=== PATIENT | female | born 1990 | race American Indian/Alaskan Native ===

== ENCOUNTER 2018-04-15 23:02 | Emergency (ER) | payer MEDICAID ==
--- NOTE | 2018-04-15 23:57 | Emergency Department Report ---
ED Abdominal Pain HPI - General Chief Complaint: Abdominal Pain Stated Complaint: ABD PAIN/8WKS Source: patient Mode of arrival: Ambulatory Limitations: No Limitations - History of Present Illness Initial Comments: Patient is a 27-year-old female that presents emergency room with complaints of lower abdominal pain/pelvic pain and dysuria. Patient states she's been having this pain for approximately 4 days. Patient states the dysuria is worsening but the pelvic pain is same. Patient states the pelvic pain is a 10 out of 10. Patient states the pain is not radiating. Patient states the pain is a stabbing pain and is uncomfortable. Patient denies fever and chills. Patient denies nausea vomiting. Patient denies diarrhea. Patient denies any recent sexual act ivity since finding out she is . Patient is currently 8 weeks . Patient denies vaginal discharge. Patient has not had any care. Patient is a . Patient denies previous miscarriages or abortions. Patient has one living child. MD Complaint: abdominal pain -: Sudden Location: suprapubic Radiation: none Migration to: no migration Severity: severe Severity scale (0 -10): 10 Quality: cramping Consistency: constant Improves With: rest Worsens With: movement Associated Symptoms: dysuria. denies: nausea, vomiting, diarrhea, fever, chills, constipation, hematemesis, hematochezia, melena, hematuria, anorexia, syncope - Related Data LMP (females 10-50): Previous Rx's Medication Instructions Recorded Last Taken Type Amoxicillin [Amoxicillin TAB] 875 mg PO BID 10 Days #20 tablet 04/16/18 Unknown Rx Allergies Allergy/AdvReac Type Severity Reaction Status Date / Time No Known Allergies Allergy Unverified 04/15/18 23:12 ED Review of Systems ROS: Stated complaint: ABD PAIN/8WKS Other details as noted in HPI Constitutional: denies: chills, fever Eyes: denies: eye pain, eye discharge, vision change ENT: denies: ear pain, throat pain Respiratory: denies: cough, shortness of breath, wheezing Cardiovascular: denies: chest pain, palpitations Endocrine: no symptoms reported Gastrointestinal: abdominal pain. denies: nausea, diarrhea Genitourinary: dysuria. denies: urgency, discharge Musculoskeletal: denies: back pain, joint swelling, arthralgia Skin: denies: rash, lesions Neurological: denies: headache, weakness, paresthesias Psychiatric: denies: anxiety, depression Hematological/Lymphatic: denies: easy bleeding, easy bruising ED Past Medical Hx - Past Medical History Previous Medical History?: Yes Hx Hypertension: Yes (Preeclampsia) - Surgical History Past Surgical History?: Yes Additional Surgical History: C section - Family History Family history: no significant - Social History Smoking Status: Never Smoker Substance Use Type: None - Medications Home Medications: Home Medications Medication Instructions Recorded Confirmed Last Taken Type Amoxicillin [Amoxicillin TAB] 875 mg PO BID 10 Days #20 tablet 04/16/18 Unknown Rx ED Physical Exam - General Limitations: No Limitations General appearance: alert, in no apparent distress - Head Head exam: Present: atraumatic, normocephalic - Eye Eye exam: Present: normal appearance - ENT ENT exam: Present: mucous membranes moist - Neck Neck exam: Present: normal inspection - Respiratory Respiratory exam: Present: normal lung sounds bilaterally. Absent: respiratory distress - Cardiovascular Cardiovascular Exam: Present: regular rate, normal rhythm. Absent: systolic murmur, diastolic murmur, rubs, gallop - GI/Abdominal GI/Abdominal exam: Present: soft, normal bowel sounds - Extremities Exam Extremities exam: Present: normal inspection - Back Exam Back exam: Present: normal inspection - Neurological Exam Neurological exam: Present: alert, oriented X3 - Psychiatric Psychiatric exam: Present: normal affect, normal mood - Skin Skin exam: Present: warm, dry, intact, normal color. Absent: rash ED Course Vital Signs 04/15/18 23:15 Temperature 99.2 F Pulse Rate 94 H Respiratory 20 Rate Blood Pressure 104/63 O2 Sat by Pulse 97 Oximetry - Reevaluation(s) Reevaluation #1: Discussed all results with patient. Patient stable for discharge. Patient to be discharged home. Patient will be given amoxicillin prior to discharge. Patient instructed to increase water. Patient instructed to take vitamin. Patient to follow up with [facility] as soon as possible. She voiced understanding of all instructions. 04/16/18 01:27 ED Medical Decision Making - Lab Data Result diagrams: 04/16/18 00:07 04/16/18 00:07 - Radiology Data Radiology results: report reviewed FINAL REPORT EXAM: US OB TRANSVAGINAL HISTORY: pelvic pain TECHNIQUE: Transvaginal imaging was obtained of the pelvis including Doppler interrogation of the uterus and adnexa. FINDINGS: The uterus is anteverted measuring 10.9 cm x 6.3 cm x 7.9 cm. Within the uterus is a well-formed gestational sac which contains a pole corresponding to a 6 week 2 day IUP. The crown-rump length is 4.9 mm. The heart is 109 BPM. Free fluid is not seen. There no evidence of subchorionic hemorrhage. The right ovary is normal size contour blood flow and echotexture measuring 3.4 cm x 1.3 cm x 1.6 cm. The left ovary measures 3.2 cm x 1.9 cm x 2.8 cm. There is an anechoic cyst measuring 1.9 cm in diameter. The blood flow is normal to left ovary. IMPRESSION: Single viable IUP, 6 weeks 2 days. The heart rate is 109 BPM which is at the lower range of normal. Follow-up studies recommended. 1.9 cm functional cyst left ovary most likely representing corpus luteum cyst. No evidence of free fluid or adnexal masses. - Medical Decision Making Patient is a 27-year-old female presents to emergency room with pain and dysuria. Patient found to have UTI. Patient had an ultrasound done which sh owed a viable single IUP at 6 weeks and 2 days, heart tones noted at 109 which is lower range of normal. Patient instructed to follow up with [facility] INSURANCE SPECIALIST for further evaluation treatment. Labs unremarkable. - Differential Diagnosis pelvic pain. uti. Dysuria Critical care attestation.: If time is entered above; I have spent that time in minutes in the direct care of this critically ill patient, excluding procedure time. ED Disposition Clinical Impression: Pelvic pain Qualifiers: Weeks of gestation: less than 8 weeks Qualified Code(s): Z3A.01 - Less than 8 weeks gestation of UTI (urinary tract infection) Qualifiers: Urinary tract infection type: acute cystitis Hematuria presence: with hematuria Qualified Code(s): N30.01 - Acute cystitis with hematuria Disposition: TO HOME OR SELFCARE Is pt being admited?: No Does the pt Need Aspirin: No Condition: Stable Instructions: (ED), Urinary Tract Infection in Women (ED), Dysuria (ED), Abdominal Pain (ED) Additional Instructions: Patient to follow up with primary care in 2-3 days. Patient to follow up with [facility] INSURANCE SPECIALIST in 2-3 days. Patient to return to ER if condition worsens. Patient to rest. Patient to avoid anything per vagina. Patient to take meds as directed. Patient take Tylenol when necessary for pain. Patient to start a vitamin. Prescriptions: Amoxicillin [Amoxicillin TAB] 875 mg PO BID 10 Days #20 tablet Referrals: AJAY WADE MD [Primary Care Provider] - 2-3 Days AYAKA HARRELL MD [Staff Physician] - 2-3 Days Time of Disposition: 01:30
[2018-04-16 00:11] LABS: Bilirubin,Urine NEG (Negative); Blood,Urine MOD (Negative); Color,Urine Yellow (Yellow); Mucus,Urine FEW /HPF
[2018-04-16 00:32] LABS: WBC,Urine > 182.0 /HPF (0.0-6.0)
[2018-04-16 00:36] LABS: Basophils % (Auto) 0.6 % (0.0-1.8); Eosinophils # (Auto) 0.2 K/mm3 (0.0-0.4); Eosinophils % (Auto) 3.6 % (0.0-4.3); Hematocrit 36.6 % (30.3-42.9); Hemoglobin 12.3 gm/dl (10.1-14.3); Lymphocytes # (Auto) 2.7 K/mm3 (1.2-5.4); Lymphocytes % (Auto) 48.8 % (13.4-35.0); Mean Corpuscular HGB Conc 34 % (30-34); Mean Corpuscular Volume 92 fl (79-97); Monocytes # (Auto) 0.5 K/mm3 (0.0-0.8); Monocytes % (Auto) 9.3 % (0.0-7.3); Platelet Count 171 K/mm3 (140-440); Red Cell Distribution Width 14.1 % (13.2-15.2)
[2018-04-16 00:49] LABS: Alanine Aminotransferase 8 units/L (7-56); Albumin 3.4 g/dL (3.9-5); BUN/Creatinine Ratio 14; Blood Urea Nitrogen 11 mg/dL (7-17); Hemolysis Index 18
--- NOTE | 2018-04-16 00:51 | Ultrasound Report ---
FINAL REPORT EXAM: US OB <= 14 WEEKS FETUS HISTORY: pelvic pain TECHNIQUE: Transabdominal imaging was obtained of the pelvis. FINDINGS: The uterus is anteverted measuring 10.9 cm x 6.3 cm x 7.9 cm. Within the uterus is a gestational sac which contains a pole. The crown-rump length is 4.9 mm corresponding to a 6 week 2 day IUP. The heart rate is 109 BPM. There is no evidence of subchorionic hemorrhage. The right ovary is normal size contour and echotexture measuring 3.4 cm x 1.3 cm x 1.6 cm. The left ovary measures 3.2 cm x 2.7 cm x 2.8 cm. Within the left ovary is an anechoic cyst measuring 1.9 cm in diameter. Free fluid is not seen. IMPRESSION: Single viable IUP, 6 weeks 2 days. The heart rate is 109 BPM which is at the lower range of nor mal. Follow-up study recommended. 1.9 cm functional cyst in left ovary most likely representing corpus luteum cyst. No evidence of adnexal masses or free fluid.
--- NOTE | 2018-04-16 00:53 | Ultrasound Report ---
FINAL REPORT EXAM: US OB TRANSVAGINAL HISTORY: pelvic pain TECHNIQUE: Transvaginal imaging was obtained of the pelvis including Doppler interrogation of the ut erus and adnexa. FINDINGS: The uterus is anteverted measuring 10.9 cm x 6.3 cm x 7.9 cm. Within the uterus is a well-formed gest ational sac which contains a pole corresponding to a 6 week 2 day IUP. The crown-rump length is 4.9 mm. The heart is 109 BPM. Free fluid is not seen. There no evidence of subchorionic hemorr eugene. The right ovary is normal size contour blood flow and echotexture measuring 3.4 cm x 1.3 cm x 1.6 cm. The left ovary measures 3.2 cm x 1.9 cm x 2.8 cm. There is an anechoic cyst measuring 1.[address] The blood flow is normal to left ovary. IMPRESSION: Single viable IUP, 6 weeks 2 days. The heart rate is 109 BPM which is at the lower range of nor mal. Follow-up studies recommended. 1.9 cm functional cyst left ovary most likely representing corpus luteum cyst. No evidence of free fluid or adnexal masses.
[2018-04-16] MEDS ORDERED: TRIMOX PO ONE (01:24)
[2018-04-16 14:51] VITALS: BP 104/63
== END 2018-04-16 02:58 | disposition home or self-care (01) ==
LOC: ED 23:02
DX: O23.41 Unspecified infection of urinary tract in pregnancy, first trimester (principal); N30.01 Acute cystitis with hematuria; I10 Essential (primary) hypertension; Z3A.01 Less than 8 weeks gestation of pregnancy
CPT/HCPCS: 36415; 76801; 76817; 80053; 81001; 84702; 85025

== ENCOUNTER 2018-08-13 12:50 | Outpatient (CLI) | payer MEDICAID ==
[2018-08-13 13:47] VITALS: BP 103/63
[2018-08-13] MEDS ORDERED: LACTATED RINGERS 500 ML IV ONE (14:36)
[2018-08-13 15:35] LABS: Bilirubin,Urine NEG (Negative); Blood,Urine NEG (Negative); Color,Urine Yellow (Yellow); Mucus,Urine FEW /HPF; Protein,Urine <15 mg/dL mg/dL (Negative); Urobilinogen,Urine < 2.0 mg/dL (<2.0)
== END 2018-08-13 15:59 | disposition home or self-care (01) ==
LOC: TRG 12:50 → LD 13:18 → TRG 15:59
PROVIDERS: ATTEND Obstetrics & Gynecology
DX: O26.892 Other specified pregnancy related conditions, second trimester (principal); R11.0 Nausea; R10.9 Unspecified abdominal pain; M54.9 Dorsalgia, unspecified; O47.02 False labor before 37 completed weeks of gestation, second trimester; Z3A.24 24 weeks gestation of pregnancy
CPT/HCPCS: 59025; 81001; J7120

== ENCOUNTER 2018-09-16 23:15 | Outpatient (CLI) | payer MEDICAID ==
[2018-09-17] MEDS ORDERED: LACTATED RINGERS 1,000 ML ONE (05:15)
[2018-09-17] MEDS ORDERED: TYLENOL PO PRN (05:16)
[2018-09-17] MEDS ORDERED: LACTATED RINGERS 1,000 ML IV SCH (06:00)
[2018-09-17] MEDS ORDERED: CELESTONE SOLUSPAN IM SCH (06:00)
[2018-09-17] MEDS ORDERED: MAGNESIUM SULFATE 40GM/1000ML 40 GM/1,000 ML BAG IV SCH (06:00)
[2018-09-17 14:48] VITALS: BP 134/101
== END 2018-09-17 01:00 | disposition still patient (30) ==
LOC: TRG 23:15
PROVIDERS: ATTEND Obstetrics & Gynecology
DX: O26.893 Other specified pregnancy related conditions, third trimester (principal); M79.89 Other specified soft tissue disorders; R23.8 Other skin changes; R07.9 Chest pain, unspecified; R06.00 Dyspnea, unspecified; O47.03 False labor before 37 completed weeks of gestation, third trimester; O13.3 Gestational [pregnancy-induced] hypertension without significant proteinuria, third trimester; O14.93 Unspecified pre-eclampsia, third trimester; Z3A.29 29 weeks gestation of pregnancy
CPT/HCPCS: 99212; G0463; J7120

== ENCOUNTER 2018-09-17 00:04 | Inpatient (IN) | payer MEDICAID ==
[2018-09-17] MEDS ORDERED: TYLENOL PO ONE (01:24)
[2018-09-17] MEDS ORDERED: MORPHINE IV ONE (01:24)
[2018-09-17] MEDS ORDERED: ZOFRAN IV ONE (01:24)
[2018-09-17] MEDS ORDERED: MAGNESIUM SULFATE 4GM/100ML 4 GM/100 ML BAG IV ONE (01:25)
--- NOTE | 2018-09-17 01:33 | Emergency Department Report ---
ED Chest Pain HPI - General Chief Complaint: Chest Pain Stated Complaint: CHEST PAIN Time Seen by Provider: 09/17/18 01:16 Source: patient Mode of arrival: Ambulatory Limitations: No Limitations - History of Present Illness Initial Comments: 28-year-old female currently 30 weeks presents to the hospital complaints of sternal chest pain and shortness of breath chest pain. Patient also has noticed bilateral lower extremity edema and tightness to her hands for the past 3 days. Sternal chest pain is constant and worse a palpation and movement. Prior to arrival patient had chest tightness and shortness of breath with ambulation. Today about 4:30 she developed a posterior headache and seeing black spots. Discussed this patient's fifth she has a history of 3 abortions and 1 miscarriage. She has one living child delivered by delivery due to preeclampsia. Patient states her vitals have been normal during this and were normal during her CFA visit on September 11. CFA: [facility] floor surfacer Severity scale (0 -10): 7 - Related Data Previous Rx's Medication Instructions Recorded Last Taken Type Amoxicillin [Amoxicillin TAB] 875 mg PO BID 10 Days #20 tablet 04/16/18 Unknown Rx Allergies Allergy/AdvReac Type Severity Reaction Status Date / Time No Known Allergies Allergy Unverified 04/15/18 23:12 Heart Score - HEART Score History: Slightly suspicious EKG: Normal Age: < 45 Risk factors: No known risk factors Troponin: < normal limit HEART Score: 0 ED Review of Systems ROS: Stated complaint: CHEST PAIN Other details as noted in HPI Comment: All other systems reviewed and negative ED Past Medical Hx - Past Medical History Previous Medical History?: Yes Hx Hypertension: Yes Hx Diabetes: No Hx Deep Vein Thrombosis: No Hx Renal Disease: No Hx Sickle Cell Disease: No Hx Seizures: No Hx Asthma: No Hx HIV: No - Surgical History Past Surgical History?: Yes Additional Surgical History: C section - Social History Smoking Status: Never Smoker Substance Use Type: None - Medications Home Medications: Home Medications Medication Instructions Recorded Confirmed Last Taken Type Amoxicillin [Amoxicillin TAB] 875 mg PO BID 10 Days #20 tablet 04/16/18 Unknown Rx ED Physical Exam - General Limitations: No Limitations - Other Other exam information: General: No limitations, patient is alert in no acute distress Head exam: Atraumatic, normocephalic Eyes exam: Normal appearance, pupils equal reactive to light, extraocular movements intact ENT: Moist mucous membrane, normal oropharynx Neck exam: Normal inspection, full range of motion, no meningismus nontender Respiratory exam: Clear to auscultation bilateral, no wheezes, rales, crackles Cardiovascular: Normal rate and rhythm, normal heart sounds Abdomen: Soft, abdomen, and nontender, with normal bowel sounds, no rebound, or guarding Extremity: Full range of motion, bilateral leg edema Back: Normal Inspection, full range of motion, no tenderness Neurologic: Alert, oriented x3, cranial nerves intact, no motor or sensory def icit Psychiatric: normal affect, normal mood Skin: Warm, dry, intact ED Course Vital Signs 09/17/18 09/17/18 09/17/18 00:35 01:09 01:11 Temperature 97.7 F Pulse Rate 51 L 50 L 50 L Respiratory 18 13 24 Rate Blood Pressure 151/110 162/83 162/83 Blood Pressure [Left] O2 Sat by Pulse 100 100 100 Oximetry 09/17/18 09/17/18 09/17/18 01:12 01:13 01:15 Temperature Pulse Rate 49 L 48 L Respiratory 18 21 25 H Rate Blood Pressure 162/83 160/95 Blood Pressure [Left] O2 Sat by Pulse 99 97 Oximetry 09/17/18 09/17/18 09/17/18 01:17 01:19 01:21 Temperature Pulse Rate 52 L 45 L 47 L Respiratory 16 17 15 Rate Blood Pressure 160/95 160/95 160/95 Blood Pressure [Left] O2 Sat by Pulse 99 100 100 Oximetry 09/17/18 09/17/18 09/17/18 01:23 01:25 01:27 Temperature Pulse Rate 53 L 48 L 50 L Respiratory 12 20 15 Rate Blood Pressure 160/95 160/95 160/95 Blood Pressure [Left] O2 Sat by Pulse 100 100 100 Oximetry 09/17/18 09/17/18 09/17/18 01:29 01:30 01:31 Temperature Pulse Rate 46 L 47 L 48 L Respiratory 15 16 13 Rate Blood Pressure 160/95 158/105 158/105 Blood Pressure [Left] O2 Sat by Pulse 100 98 100 Oximetry 09/17/18 09/17/18 09/17/18 01:32 01:33 01:35 Temperature Pulse Rate 48 L 47 L 49 L Respiratory 17 13 13 Rate Blood Pressure 158/105 158/105 158/105 Blood Pressure [Left] O2 Sat by Pulse 100 99 100 Oximetry 09/17/18 09/17/18 09/17/18 01:37 01:39 01:41 Temperature Pulse Rate 52 L 50 L 53 L Respiratory 22 19 22 Rate Blood Pressure 158/105 158/105 158/105 Blood Pressure [Left] O2 Sat by Pulse 99 100 99 Oximetry 09/17/18 09/17/18 09/17/18 01:43 01:45 01:47 Temperature Pulse Rate 49 L 47 L 50 L Respiratory 21 19 18 Rate Blood Pressure 158/105 150/87 158/105 Blood Pressure [Left] O2 Sat by Pulse 99 94 100 Oximetry 09/17/18 09/17/18 09/17/18 01:49 01:51 01:53 Temperature Pulse Rate 46 L 47 L 49 L Respiratory 20 18 17 Rate Blood Pressure 158/105 158/105 158/105 Blood Pressure [Left] O2 Sat by Pulse 99 100 99 Oximetry 09/17/18 09/17/18 09/17/18 01:55 01:57 01:59 Temperature Pulse Rate 47 L 49 L 47 L Respiratory 24 21 22 Rate Blood Pressure 158/105 158/105 158/105 Blood Pressure [Left] O2 Sat by Pulse 99 99 99 Oximetry 09/17/18 09/17/18 09/17/18 02:00 02:01 02:03 Temperature Pulse Rate 47 L 47 L 53 L Respiratory 19 14 14 Rate Blood Pressure 160/102 160/102 160/102 Blood Pressure [Left] O2 Sat by Pulse 96 100 100 Oximetry 09/17/18 09/17/18 09/17/18 02:05 02:07 02:09 Temperature Pulse Rate 51 L 46 L 49 L Respiratory 16 22 18 Rate Blood Pressure 160/102 160/102 160/102 Blood Pressure [Left] O2 Sat by Pulse 100 100 99 Oximetry 09/17/18 09/17/18 09/17/18 02:11 02:13 02:15 Temperature Pulse Rate 54 L 57 L 52 L Respiratory 27 H 13 15 Rate Blood Pressure 160/102 160/102 155/93 Blood Pressure [Left] O2 Sat by Pulse 99 99 96 Oximetry 09/17/18 09/17/18 09/17/18 02:17 02:19 02:21 Temperature Pulse Rate 53 L 51 L 55 L Respiratory 14 18 17 Rate Blood Pressure 155/93 155/93 155/93 Blood Pressure [Left] O2 Sat by Pulse 99 99 99 Oximetry 09/17/18 09/17/18 09/17/18 02:23 02:25 02:27 Temperature Pulse Rate 53 L 57 L 58 L Respiratory 16 13 12 Rate Blood Pressure 155/93 155/93 155/93 Blood Pressure [Left] O2 Sat by Pulse 99 99 98 Oximetry 09/17/18 09/17/18 09/17/18 02:29 02:30 02:31 Temperature Pulse Rate 63 61 61 Respiratory 16 22 21 Rate Blood Pressure 155/93 143/83 143/83 Blood Pressure [Left] O2 Sat by Pulse 99 95 98 Oximetry 09/17/18 09/17/18 09/17/18 02:33 02:35 02:37 Temperature Pulse Rate 64 63 68 Respiratory 17 16 14 Rate Blood Pressure 143/83 145/89 145/89 Blood Pressure [Left] O2 Sat by Pulse 98 93 98 Oximetry 09/17/18 09/17/18 09/17/18 02:39 02:41 02:43 Temperature Pulse Rate 70 67 63 Respiratory 15 16 15 Rate Blood Pressure 145/89 145/89 145/89 Blood Pressure 145/89 [Left] O2 Sat by Pulse 98 98 99 Oximetry ED Medical Decision Making - Lab Data Result diagrams: 09/17/18 01:47 09/17/18 01:47 Lab Results 09/17/18 09/17/18 09/17/18 Range/Units 01:10 01:47 01:47 WBC 6.5 (4.5-11.0) K/mm3 RBC 3.52 L (3.65-5.03) M/mm3 Hgb 10.3 (10.1-14.3) gm/dl Hct 30.4 (30.3-42.9) % MCV 86 (79-97) fl MCH 29 (28-32) pg MCHC 34 (30-34) % RDW 15.2 (13.2-15.2) % Plt Count 143 (140-440) K/mm3 Lymph % (Auto) 36.9 H (13.4-35.0) % [place] % (Auto) 9.7 H (0.0-7.3) % Eos % (Auto) 2.9 (0.0-4.3) % Baso % (Auto) 1.1 (0.0-1.8) % Lymph # 2.4 (1.2-5.4) K/mm3 [place] # 0.6 (0.0-0.8) K/mm3 Eos # 0.2 (0.0-0.4) K/mm3 Baso # 0.1 (0.0-0.1) K/mm3 Seg Neutrophils % 49.4 (40.0-70.0) % Seg Neutrophils # 3.2 (1.8-7.7) K/mm3 PT 12.8 (12.2-14.9) Sec. INR 0.99 (0.87-1.13) APTT 24.7 (24.2-36.6) Sec. Sodium (137-145) mmol/L Potassium (3.6-5.0) mmol/L Chloride (98-107) mmol/L Carbon Dioxide (22-30) mmol/L Anion Gap mmol/L BUN (7-17) mg/dL Creatinine (0.7-1.2) mg/dL Estimated GFR ml/min BUN/Creatinine Ratio % Glucose (65-100) mg/dL Uric Acid (3.5-7.6) mg/dL Calcium (8.4-10.2) mg/dL Total Bilirubin (0.1-1.2) mg/dL AST (5-40) units/L ALT (7-56) units/L Alkaline Phosphatase (35-129) units/L Total Creatine Kinase (30-135) units/L CK-MB (CK-2) (0.0-4.0) ng/mL CK-MB (CK-2) Rel Index (0-4) Troponin T (0.00-0.029) ng/mL NT-Pro-B Natriuret Pep (0-450) pg/mL Total Protein (6.3-8.2) g/dL Albumin (3.9-5) g/dL Albumin/Globulin Ratio % Urine Color Yellow (Yellow) Urine Turbidity Clear (Clear) Urine pH 6.0 (5.0-7.0) Ur Specific [place] 1.010 (1.003-1.030) Urine Protein >500 (Negative) mg/dL Urine Glucose (UA) Neg (Negative) mg/dL Urine Ketones Neg (Negative) mg/dL Urine Blood Neg (Negative) Urine Nitrite Neg (Negative) Urine Bilirubin Neg (Negative) Urine Urobilinogen < 2.0 (<2.0) mg/dL Ur Leukocyte Esterase Neg (Negative) Urine WBC (Auto) 1.0 (0.0-6.0) /HPF Urine RBC (Auto) 1.0 (0.0-6.0) /HPF U Epithel Cells (Auto) 2.0 (0-13.0) /HPF Urine Bacteria (Auto) 1+ (Negative) /HPF 09/17/18 Range/Units 01:47 WBC (4.5-11.0) K/mm3 RBC (3.65-5.03) M/mm3 Hgb (10.1-14.3) gm/dl Hct (30.3-42.9) % MCV (79-97) fl MCH (28-32) pg MCHC (30-34) % RDW (13.2-15.2) % Plt Count (140-440) K/mm3 Lymph % (Auto) (13.4-35.0) % [place] % (Auto) (0.0-7.3) % Eos % (Auto) (0.0-4.3) % Baso % (Auto) (0.0-1.8) % Lymph # (1.2-5.4) K/mm3 [place] # (0.0-0.8) K/mm3 Eos # (0.0-0.4) K/mm3 Baso # (0.0-0.1) K/mm3 Seg Neutrophils % (40.0-70.0) % Seg Neutrophils # (1.8-7.7) K/mm3 PT (12.2-14.9) Sec. INR (0.87-1.13) APTT (24.2-36.6) Sec. Sodium 136 L (137-145) mmol/L Potassium 4.2 (3.6-5.0) mmol/L Chloride 106.7 (98-107) mmol/L Carbon Dioxide 19 L (22-30) mmol/L Anion Gap 15 mmol/L BUN 16 (7-17) mg/dL Creatinine 0.8 (0.7-1.2) mg/dL Estimated GFR > 60 ml/min BUN/Creatinine Ratio 20 % Glucose 75 (65-100) mg/dL Uric Acid 7.0 (3.5-7.6) mg/dL Calcium 8.3 L (8.4-10.2) mg/dL Total Bilirubin 0.30 (0.1-1.2) mg/dL AST 20 (5-40) units/L ALT 11 (7-56) units/L Alkaline Phosphatase 79 (35-129) units/L Total Creatine Kinase 83 (30-135) units/L CK-MB (CK-2) 1.4 (0.0-4.0) ng/mL CK-MB (CK-2) Rel Index 1.6 (0-4) Troponin T < 0.010 (0.00-0.029) ng/mL NT-Pro-B Natriuret Pep 424.1 (0-450) pg/mL Total Protein 5.7 L (6.3-8.2) g/dL Albumin 3.3 L (3.9-5) g/dL Albumin/Globulin Ratio 1.4 % Urine Color (Yellow) Urine Turbidity (Clear) Urine pH (5.0-7.0) Ur Specific [place] (1.003-1.030) Urine Protein (Negative) mg/dL Urine Glucose (UA) (Negative) mg/dL Urine Ketones (Negative) mg/dL Urine Blood (Negative) Urine Nitrite (Negative) Urine Bilirubin (Negative) Urine Urobilinogen (<2.0) mg/dL Ur Leukocyte Esterase (Negative) Urine WBC (Auto) (0.0-6.0) /HPF Urine RBC (Auto) (0.0-6.0) /HPF U Epithel Cells (Auto) (0-13.0) /HPF Urine Bacteria (Auto) (Negative) /HPF - EKG Data -: EKG Interpreted by Dc EKG shows normal: sinus rhythm, axis (qrs 44), QRS complexes (qrsd 86), ST-T waves Rate: bradycardia (56) - Radiology Data Radiology results: report reviewed CXR: naf - Medical Decision Making Patient has reproducible sternal chest wall tenderness on exam suggestive of costochondritis. Chest x-ray unremarkable. EKG without signs of ST elevation [place]. Patient is preeclamptic and will be transferred to labor and delivery. Case discussed with Dr. Chu Ren. Patient started on magnesium bolus 4 g in drip at 2 g per hour. She did receive morphine, Tylenol for pain and Zofran for nausea. - Differential Diagnosis [place], PE, pneumonia, CHF, pneumothorax, preeclampsia, PIH Critical Care Time: No Critical care attestation.: If time is entered above; I have spent that time in minutes in the direct care of this critically ill patient, excluding procedure time. ED Disposition Clinical Impression: Preeclampsia, Costochondritis, acute, 30 weeks gestation of Disposition: OP ADMIT IP TO THIS HOSP Is pt being admited?: Yes Condition: Stable Time of Disposition: 03:05 (DR Dulce Ren/floor surfacer L and d)
--- NOTE | 2018-09-17 01:57 | XRay Report ---
CHEST 1 VIEW INDICATION: sternal cp. COMPARISON: None. FINDINGS: Support devices: None. Heart: Normal. Lungs/Pleura: No acute pulmonary or pleural findings. IMPRESSION: 1. No acute findings. Signer Name: Oz Resendiz MD Signed: 09/17/2018 1:52 AM Workstation Name: [id number]
[2018-09-17 02:00] LABS: Basophils # (Auto) 0.1 K/mm3 (0.0-0.1); Basophils % (Auto) 1.1 % (0.0-1.8); Eosinophils # (Auto) 0.2 K/mm3 (0.0-0.4); Eosinophils % (Auto) 2.9 % (0.0-4.3); Hematocrit 30.4 % (30.3-42.9); Hemoglobin 10.3 gm/dl (10.1-14.3); Lymphocytes # (Auto) 2.4 K/mm3 (1.2-5.4); Lymphocytes % (Auto) 36.9 % (13.4-35.0); Mean Corpuscular HGB Conc 34 % (30-34); Mean Corpuscular Volume 86 fl (79-97); Monocytes # (Auto) 0.6 K/mm3 (0.0-0.8); Monocytes % (Auto) 9.7 % (0.0-7.3); Platelet Count 143 K/mm3 (140-440); Red Blood Count 3.52 M/mm3 (3.65-5.03); Red Cell Distribution Width 15.2 % (13.2-15.2)
[2018-09-17] MEDS ORDERED: MAGNESIUM SULFATE 40GM/1000ML 40 GM/1,000 ML BAG IV SCH ×2 (02:00→06:00)
[2018-09-17 02:11] LABS: Bacteria,Urine 1+ /HPF (Negative); Bilirubin,Urine NEG (Negative); Blood,Urine NEG (Negative); Color,Urine Yellow (Yellow); Urobilinogen,Urine < 2.0 mg/dL (<2.0)
[2018-09-17 02:12] LABS: Protein,Urine >500 mg/dL (Negative)
[2018-09-17 02:17] LABS: INR 0.99 (0.87-1.13); Partial Thromboplastin Time 24.7 Sec. (24.2-36.6)
[2018-09-17 02:18] LABS: Creatine Kinase MB 1.4 ng/mL (0.0-4.0)
[2018-09-17 02:19] LABS: Alanine Aminotransferase 11 units/L (7-56); Albumin 3.3 g/dL (3.9-5); BUN/Creatinine Ratio 20; Blood Urea Nitrogen 16 mg/dL (7-17); Calcium 8.3 mg/dL (8.4-10.2); Hemolysis Index 6
[2018-09-17] MEDS ORDERED: TYLENOL PO PRN ×2 (05:51→14:45)
[2018-09-17] MEDS ORDERED: APRESOLINE IV ONE ×2 (05:54→09:20)
[2018-09-17] MEDS: CELESTONE SOLUSPAN IM SCH (06:59)
[2018-09-17] MEDS: LACTATED RINGERS 1,000 ML IV SCH ×2 (07:19→21:22)
[2018-09-17] MEDS ORDERED: PRENATAL VITAMIN PO SCH (10:00)
--- NOTE | 2018-09-17 12:26 | Event Note ---
Date: 09/17/18 MD requested records on patient. Was able to access records as follows. . LMP 02/24/18. EDC 12/01/18 (confirmed by 12 week, 5 day US). History of low transverse section, preeclampsia with her last (on LDA therapy), asthma. labs: A+, antibody screen negative, rubella immune, hepatitis B surface antigen negative, RPR nonreactive, HIV negative, hemoglobin electrophoresis normal, urine culture no growth, chlamydia negative, gonorrhea negative, trichomonas negative, pap smear negative, panorama low risk, no 1 hour sugar test result available.
--- NOTE | 2018-09-17 14:34 | History and Physical Report ---
History of Present Illness Date of examination: 09/17/18 Date of admission: 09/17/18 05:22 History of present illness: Pt is a 28yo BF EDC 12/01/18; EGA 29 2/7 weeks presents to L&D complaining of chest pains with SOB, was sent to the ER where she was evaluated for costochondritis and sent back to L&D for Preeclampsia. She was begun on IV Magnesium sulfate and currently on 2gm/hr. She still complains of headaches which was relieved earlier with IV Morphine. She received care at [facility], however records are not available. Past History Past Medical History: other (preeclampsia) Past Surgical History: section Family/Genetic History: none Social history: no significant social history, single - Obstetrical History Expected Date of Delivery: 12/01/18 Actual Gestation: 29 Week(s) 2 Day(s) : 5 Medications and Allergies Allergies Allergy/AdvReac Type Severity Reaction Status Date / Time No Known Allergies Allergy Unverified 04/15/18 23:12 Home Medications Medication Instructions Recorded Confirmed Last Taken Type Amoxicillin [Amoxicillin TAB] 875 mg PO BID 10 Days #20 tablet 04/16/18 Unknown Rx Active Meds: Active Medications Acetaminophen (Tylenol) 650 mg PO Q4H PRN PRN Reason: Pain MILD(1-3)/Fever >100.5/RIVERA Betamethasone Acet/Betameth SodPhos (Celestone Soluspan) 12 mg IM Q24H KATARZYNA Stop: 09/18/18 06:01 Last Admin: 09/17/18 06:59 Dose: 12 mg Documented by: Magnesium Sulfate (Magnesium Sulfate 40gm/1000ml) 40 gm in 1,000 mls @ 50 mls/hr IV DIRECT KATARZYNA Lactated Ringer's (Lactated Ringers) 1,000 mls @ 75 mls/hr IV DIRECT KATARZYNA Last Admin: 09/17/18 07:19 Dose: 75 mls/hr Documented by: Multivitamins/Iron/Calcium ( Vitamin) 1 each PO QDAY KATARZYNA Review of Systems All systems: negative - Vital Signs Vital signs: Vital Signs Temp Pulse Resp BP Pulse Ox 97.7 F 51 L 18 151/110 100 09/17/18 00:35 09/17/18 00:35 09/17/18 00:35 09/17/18 00:35 09/17/18 00:35 Temp Pulse Resp BP Pulse Ox 97.7 F 67 15 168/107 92 09/17/18 00:35 09/17/18 09:54 09/17/18 04:15 09/17/18 09:54 09/17/18 04:15 - Physical Exam Breasts: Positive: deferred Cardiovascular: Regular rate Lungs: Positive: Clear to auscultation Abdomen: Positive: normal appearance, soft Uterus: Positive: enlarged Extremities: Positive: normal - Obstetrical FHR: category 1 Uterine Contraction Monitor Mode: External Uterine Contraction Pattern: Absent Results Result Diagrams: 09/17/18 01:47 09/17/18 01:47 Abnormal lab results 09/17/18 09/17/18 Range/Units 01:47 01:47 RBC 3.52 L (3.65-5.03) M/mm3 Lymph % (Auto) 36.9 H (13.4-35.0) % [place] % (Auto) 9.7 H (0.0-7.3) % Sodium 136 L (137-145) mmol/L Carbon Dioxide 19 L (22-30) mmol/L Calcium 8.3 L (8.4-10.2) mg/dL Total Protein 5.7 L (6.3-8.2) g/dL Albumin 3.3 L (3.9-5) g/dL All other labs normal. Assessment and Plan - Patient Problems (1) 30 weeks gestation of Onset Date: 09/17/18 Current Visit: Yes Status: Acute Plan to address problem: A: IUP @ 29 2/7 weeks Preeclampsia Costochondritis Previous C Section P: Admit to L&D for IV Magnesium sulfate and BP management Obtain 24hr urine and PIH labs Obtain APA consultation Obtain records (2) Costochondritis, acute Onset Date: 09/17/18 Current Visit: Yes Status: Acute (3) Preeclampsia Onset Date: 09/17/18 Current Visit: Yes Status: Acute Qualifiers: Trimester: third trimester Qualified Code(s): O14.93 - Unspecified pre- eclampsia, third trimester
[2018-09-17] MEDS ORDERED: MILK OF MAGNESIA PO PRN (14:45)
[2018-09-17] MEDS ORDERED: COLACE PO PRN (14:45)
[2018-09-17] MEDS ORDERED: APRESOLINE IV PRN (14:51)
[2018-09-17] MEDS ORDERED: LACTATED RINGERS 1,000 ML IV SCH (15:00)
[2018-09-17] MEDS ORDERED: MORPHINE IV PRN (17:52)
--- NOTE | 2018-09-17 20:14 | Ultrasound Report ---
Limited biophysical profile Ultrasound HISTORY: Preeclampsia. TECHNIQUE: Grayscale and color Doppler imaging performed. COMPARISON: None FINDINGS: The fetus received a score of 2 for breathing movement, movement, posteri or, and qualitative RADHA. The total score was 8 out of 8. IMPRESSION: Normal biophysical profile. Signer Name: Joaquín Harrison MD Signed: 09/17/2018 8:10 PM Workstation Name: [id number]
[2018-09-18] MEDS: CELESTONE SOLUSPAN IM SCH (06:01)
[2018-09-18] MEDS: LACTATED RINGERS 1,000 ML IV SCH (06:02)
[2018-09-18] MEDS: PRENATAL VITAMIN PO SCH (10:23)
--- NOTE | 2018-09-18 12:02 | Progress Note ---
Assessment and Plan - Patient Problems (1) 29 weeks gestation of Current Visit: Yes Status: Acute (2) Preeclampsia Onset Date: 09/17/18 Current Visit: Yes Status: Acute Qualifiers: Trimester: third trimester Qualified Code(s): O14.93 - Unspecified pre- eclampsia, third trimester Plan to address problem: Will do another Mg level now, is below 5, will restart the magnesium today at 1 gm/hr. Celestone completed. Continue BP monitoring. Labetolol for BP control. NICU and APA consults. Sonogram for BPP, cord doppler, RADHA, growth. Subjective - Subjective Date of service: 09/18/18 Principal diagnosis: SIUP at 29 weks and 2 days with pre-eclampsia. Interval history: Patient is a 28 year old , EDC who is at 29 weeks and 2 days gestation who was admitted for pre-eclampsia. She presented to the ER yesterday with complaints of headache, visual disturbances, edema, and chest pain. Her initial BPs were in the 160's/100. She was given Magnesium sulfate for seizure prophylaxis and neuroprotection, celestone for FLM, and hydralazine. Toxemia labs were normal. 24-hr urine is pending. BP has been in the 130-140's/90's since admission. tracing is CAT1. BPP was 8/8 (09/17). Her magnesium was discontinued last night because the level was 7.5. This AM, Mg was 5.4. Today, she denies any symptoms but reports occasional headaches. She reports go od movement. Objective - Vital Signs Vital Signs: Vital Signs - 12hr 09/17/18 09/18/18 09/18/18 23:58 00:03 00:08 Pulse Rate 72 73 69 Respiratory Rate Blood Pressure 136/89 O2 Sat by Pulse 98 98 98 Oximetry 09/18/18 09/18/18 09/18/18 00:13 00:18 00:23 Pulse Rate 68 68 67 Respiratory Rate Blood Pressure O2 Sat by Pulse 97 97 97 Oximetry 09/18/18 09/18/18 09/18/18 00:28 00:33 00:37 Pulse Rate 68 74 Respiratory 18 Rate Blood Pressure O2 Sat by Pulse 97 98 98 Oximetry 09/18/18 09/18/18 09/18/18 00:38 00:43 00:48 Pulse Rate 67 64 64 Respiratory Rate Blood Pressure O2 Sat by Pulse 97 97 98 Oximetry 09/18/18 09/18/18 09/18/18 00:53 00:58 01:00 Pulse Rate 64 60 Respiratory 18 Rate Blood Pressure O2 Sat by Pulse 97 98 Oximetry 09/18/18 09/18/18 09/18/18 01:03 01:08 01:13 Pulse Rate 60 61 57 L Respiratory Rate Blood Pressure 142/86 O2 Sat by Pulse 97 97 97 Oximetry 09/18/18 09/18/18 09/18/18 01:18 01:23 01:28 Pulse Rate 62 59 L 62 Respiratory Rate Blood Pressure O2 Sat by Pulse 97 97 97 Oximetry 09/18/18 09/18/18 09/18/18 01:29 01:33 01:38 Pulse Rate 67 59 L 58 L Respiratory Rate Blood Pressure O2 Sat by Pulse 94 97 98 Oximetry 09/18/18 09/18/18 09/18/18 01:43 01:48 01:53 Pulse Rate 60 60 63 Respiratory Rate Blood Pressure O2 Sat by Pulse 98 98 99 Oximetry 09/18/18 09/18/18 09/18/18 01:58 02:00 02:02 Pulse Rate 60 56 L Respiratory 17 Rate Blood Pressure 136/85 O2 Sat by Pulse 98 Oximetry 09/18/18 09/18/18 09/18/18 02:03 02:08 02:13 Pulse Rate 58 L 60 73 Respiratory Rate Blood Pressure O2 Sat by Pulse 98 98 98 Oximetry 09/18/18 09/18/18 09/18/18 02:18 02:23 02:28 Pulse Rate 68 59 L 59 L Respiratory Rate Blood Pressure O2 Sat by Pulse 98 98 98 Oximetry 09/18/18 09/18/18 09/18/18 02:33 02:38 02:43 Pulse Rate 58 L 60 57 L Respiratory Rate Blood Pressure O2 Sat by Pulse 98 98 98 Oximetry 09/18/18 09/18/18 09/18/18 02:48 02:53 02:58 Pulse Rate 63 61 61 Respiratory Rate Blood Pressure O2 Sat by Pulse 98 97 97 Oximetry 09/18/18 09/18/18 09/18/18 03:03 03:08 03:13 Pulse Rate 59 L 58 L 59 L Respiratory Rate Blood Pressure 138/91 O2 Sat by Pulse 97 98 98 Oximetry 09/18/18 09/18/18 09/18/18 03:18 03:23 03:28 Pulse Rate 64 65 59 L Respiratory Rate Blood Pressure O2 Sat by Pulse 97 98 98 Oximetry 09/18/18 09/18/18 09/18/18 03:33 03:38 03:43 Pulse Rate 71 65 69 Respiratory Rate Blood Pressure O2 Sat by Pulse 98 99 97 Oximetry 09/18/18 09/18/18 09/18/18 03:48 03:53 03:58 Pulse Rate 66 69 68 Respiratory Rate Blood Pressure O2 Sat by Pulse 99 99 98 Oximetry 09/18/18 09/18/18 09/18/18 04:02 04:03 04:08 Pulse Rate 67 66 68 Respiratory Rate Blood Pressure 142/98 O2 Sat by Pulse 98 98 Oximetry 09/18/18 09/18/18 09/18/18 04:13 04:18 04:23 Pulse Rate 68 69 66 Respiratory Rate Blood Pressure O2 Sat by Pulse 98 98 98 Oximetry 09/18/18 09/18/18 09/18/18 04:28 04:33 04:38 Pulse Rate 68 69 69 Respiratory Rate Blood Pressure O2 Sat by Pulse 97 97 98 Oximetry 09/18/18 09/18/18 09/18/18 04:43 04:48 04:50 Pulse Rate 70 67 69 Respiratory Rate Blood Pressure O2 Sat by Pulse 97 97 94 Oximetry 09/18/18 09/18/18 09/18/18 04:53 04:56 04:58 Pulse Rate 69 70 71 Respiratory Rate Blood Pressure O2 Sat by Pulse 96 94 96 Oximetry 09/18/18 09/18/18 09/18/18 05:02 05:03 05:08 Pulse Rate 72 70 71 Respiratory Rate Blood Pressure 138/91 O2 Sat by Pulse 92 97 96 Oximetry 09/18/18 09/18/18 09/18/18 05:13 05:18 05:23 Pulse Rate 70 73 71 Respiratory Rate Blood Pressure O2 Sat by Pulse 96 97 97 Oximetry 09/18/18 09/18/18 09/18/18 05:28 05:33 05:38 Pulse Rate 74 73 74 Respiratory Rate Blood Pressure O2 Sat by Pulse 98 98 97 Oximetry 09/18/18 09/18/18 09/18/18 05:43 05:48 05:53 Pulse Rate 76 76 74 Respiratory Rate Blood Pressure O2 Sat by Pulse 97 97 98 Oximetry 09/18/18 09/18/18 09/18/18 05:58 06:02 06:03 Pulse Rate 77 72 77 Respiratory Rate Blood Pressure 131/83 O2 Sat by Pulse 97 98 Oximetry 09/18/18 09/18/18 09/18/18 06:08 06:13 06:18 Pulse Rate 76 75 78 Respiratory Rate Blood Pressure O2 Sat by Pulse 97 98 97 Oximetry 09/18/18 09/18/18 09/18/18 06:23 06:28 06:33 Pulse Rate 79 79 77 Respiratory Rate Blood Pressure O2 Sat by Pulse 98 97 98 Oximetry 09/18/18 09/18/18 09/18/18 06:38 06:43 06:48 Pulse Rate 77 80 70 Respiratory Rate Blood Pressure O2 Sat by Pulse 97 98 97 Oximetry 09/18/18 09/18/18 09/18/18 06:53 06:58 07:03 Pulse Rate 69 66 69 Respiratory Rate Blood Pressure 118/71 O2 Sat by Pulse 97 97 98 Oximetry 09/18/18 09/18/18 09/18/18 07:08 07:13 07:18 Pulse Rate 79 75 68 Respiratory Rate Blood Pressure O2 Sat by Pulse 98 97 98 Oximetry 09/18/18 09/18/18 09/18/18 07:23 07:28 07:33 Pulse Rate 69 66 84 Respiratory Rate Blood Pressure O2 Sat by Pulse 98 97 97 Oximetry 09/18/18 09/18/18 09/18/18 07:38 07:43 07:48 Pulse Rate 71 72 67 Respiratory Rate Blood Pressure O2 Sat by Pulse 97 97 96 Oximetry 09/18/18 09/18/18 09/18/18 07:53 07:58 08:02 Pulse Rate 68 70 66 Respiratory Rate Blood Pressure 137/79 O2 Sat by Pulse 96 96 Oximetry 09/18/18 09/18/18 09/18/18 08:03 08:08 08:13 Pulse Rate 68 68 68 Respiratory Rate Blood Pressure O2 Sat by Pulse 96 96 96 Oximetry 09/18/18 09/18/18 09/18/18 08:18 08:19 08:23 Pulse Rate 70 69 73 Respiratory Rate Blood Pressure O2 Sat by Pulse 94 94 96 Oximetry 09/18/18 09/18/18 09/18/18 08:28 08:33 08:38 Pulse Rate 68 71 69 Respiratory Rate Blood Pressure O2 Sat by Pulse 95 95 95 Oximetry 09/18/18 09/18/18 09/18/18 08:41 08:43 08:48 Pulse Rate 70 68 66 Respiratory Rate Blood Pressure O2 Sat by Pulse 94 95 96 Oximetry 09/18/18 09/18/18 09/18/18 08:53 08:58 09:02 Pulse Rate 69 66 70 Respiratory Rate Blood Pressure 139/96 O2 Sat by Pulse 96 97 Oximetry 09/18/18 09/18/18 09/18/18 09:03 09:08 09:13 Pulse Rate 68 68 70 Respiratory Rate Blood Pressure O2 Sat by Pulse 97 96 98 Oximetry 09/18/18 09/18/18 09/18/18 09:18 09:23 09:28 Pulse Rate 67 71 72 Respiratory Rate Blood Pressure O2 Sat by Pulse 98 98 98 Oximetry 09/18/18 09/18/18 09/18/18 09:33 09:38 09:43 Pulse Rate 73 73 74 Respiratory Rate Blood Pressure O2 Sat by Pulse 98 99 99 Oximetry 09/18/18 09/18/18 09/18/18 09:48 09:53 09:58 Pulse Rate 71 72 74 Respiratory Rate Blood Pressure O2 Sat by Pulse 98 99 99 Oximetry 09/18/18 09/18/18 09/18/18 10:02 10:03 10:08 Pulse Rate 68 74 71 Respiratory Rate Blood Pressure 139/93 O2 Sat by Pulse 99 98 Oximetry 09/18/18 09/18/18 09/18/18 10:13 10:18 10:23 Pulse Rate 73 76 70 Respiratory Rate Blood Pressure O2 Sat by Pulse 98 97 98 Oximetry 09/18/18 09/18/18 09/18/18 10:28 10:33 10:38 Pulse Rate 70 82 72 Respiratory Rate Blood Pressure O2 Sat by Pulse 99 98 98 Oximetry 09/18/18 09/18/18 09/18/18 10:43 10:48 10:53 Pulse Rate 76 76 77 Respiratory Rate Blood Pressure O2 Sat by Pulse 98 97 97 Oximetry 09/18/18 09/18/18 09/18/18 10:58 11:03 11:08 Pulse Rate 89 78 76 Respiratory Rate Blood Pressure 147/92 O2 Sat by Pulse 97 97 97 Oximetry 07/10/3009/18/18 09/18/18 11:13 11:18 11:23 Pulse Rate 74 74 84 Respiratory Rate Blood Pressure O2 Sat by Pulse 97 97 99 Oximetry 09/18/18 09/18/18 09/18/18 11:28 11:33 11:38 Pulse Rate 81 75 73 Respiratory Rate Blood Pressure O2 Sat by Pulse 97 99 98 Oximetry 09/18/18 11:43 Pulse Rate 84 Respiratory Rate Blood Pressure O2 Sat by Pulse 98 Oximetry - Exam Cardiovascular: Normal S1, Normal S2 Lungs: Clear to auscultation Vulva: both: normal FHR: category 1 Uterine Contraction Monitor Mode: External Uterine Contraction Pattern: Absent Deep Tendon Reflex Grade: Normal +2 - Labs Labs: Abnormal Labs 09/17/18 09/17/18 09/17/18 01:47 01:47 23:03 RBC 3.52 L Lymph % (Auto) 36.9 H [place] % (Auto) 9.7 H Sodium 136 L Carbon Dioxide 19 L Calcium 8.3 L Magnesium 7.50 H Total Protein 5.7 L Albumin 3.3 L 09/18/18 05:27 RBC Lymph % (Auto) [place] % (Auto) Sodium Carbon Dioxide Calcium Magnesium 5.40 H Total Protein Albumin Laboratory Results - last 24 hr 09/17/18 09/17/18 09/18/18 16:10 23:03 05:27 Magnesium 7.50 H 5.40 H Blood Type A POSITIVE Antibody Screen Negative - Results US- obstetric: report reviewed
--- NOTE | 2018-09-18 13:36 | Consultation ---
History of Present Illness Consult date: 09/18/18 Requesting physician: ALLAN SAMPSON History of present illness: the patient is @ 29.3 weeks that presented with initially SOB and CP and then was found to have elevated BP and she also saays that she was seeing spots now she does not have these symptoms and says that she feels well and not having RIVERA vision changes Past History Past Medical History: no pertinent history, other (preeclampsia) Past Surgical History: section Family/Genetic History: none Social history: no significant social history - Obstetrical History : 5 Number of Pregnancies: 1 (PreE ) Medications and Allergies Allergies Allergy/AdvReac Type Severity Reaction Status Date / Time No Known Allergies Allergy Unverified 04/15/18 23:12 Home Medications Medication Instructions Recorded Confirmed Last Taken Type Amoxicillin [Amoxicillin TAB] 875 mg PO BID 10 Days #20 tablet 04/16/18 Unknown Rx Active Meds: Active Medications Acetaminophen (Tylenol) 650 mg PO Q4H PRN PRN Reason: Pain MILD(1-3)/Fever >100.5/RIVERA Last Admin: 09/17/18 18:39 Dose: 650 mg Documented by: Docusate Sodium (Colace) 100 mg PO Q12H PRN PRN Reason: Constipation Hydralazine HCl (Apresoline) 10 mg IV Q30MIN PRN PRN Reason: Blood Pressure Lactated Ringer's (Lactated Ringers) 1,000 mls @ 75 mls/hr IV DIRECT [facility] Last Admin: 09/18/18 06:02 Dose: 125 mls/hr Documented by: Magnesium Hydroxide (Milk Of Magnesia) 30 ml PO QHS PRN PRN Reason: Laxative Effect Morphine Sulfate (Morphine) 2 mg IV Q4H PRN PRN Reason: Pain, Moderate (4-6) Multivitamins/Iron/Calcium ( Vitamin) 1 each PO QDAY [facility] Last Admin: 09/18/18 10:23 Dose: 1 each Documented by: Oxycodone/Acetaminophen (Percocet 5/325) 2 tab PO Q6H PRN PRN Reason: Pain, Moderate (4-6) Review of Systems Eyes: no blurred vision, no diplopia, no pain Cardiovascular: no palpitations, no lightheadedness, no shortness of breath Respiratory: no shortness of breath, no dyspnea on exertion Gastrointestinal: no abdominal pain Neurological: no weakness, no parathesias, no numbness - Vital Signs Vital signs: Vital Signs Temp Pulse Resp BP Pulse Ox 97.7 F 51 L 18 151/110 100 09/17/18 00:35 09/17/18 00:35 09/17/18 00:35 09/17/18 00:35 09/17/18 00:35 Temp Pulse Resp BP Pulse Ox 97.3 F L 75 17 123/82 98 09/17/18 21:03 09/18/18 13:21 09/18/18 02:00 09/18/18 13:21 09/18/18 11:43 - Physical Exam Cardiovascular: Regular rate Lungs: Positive: Normal air movement Abdomen: Positive: normal appearance, soft. Negative: distention, tenderness, guarding Uterus: Negative: tender - Obstetrical FHR: category 1 Results Result Diagrams: 09/17/18 01:47 09/17/18 01:47 Abnormal lab results 09/17/18 09/18/18 Range/Units 23:03 05:27 Magnesium 7.50 H 5.40 H (1.7-2.3) mg/dL All other labs normal. Assessment and Plan the patient is @ 29.3 weeks with farhat 12/01 that has PreE with severe features but stable now - patient has been on Mag, turn off after 24 hours - BMZ course gettting - 24 hour urine is in progress - BP are stable at this time on no meds - Labs are stable normal LFT and platelets - obtain US - continue inpatient care at this time - the patient with her previous severe range BP and blurry visionm CP ( now resolved) and history of PreE should be kept in house - we would aim to deliver the patient at 34 weeks but would not recommend expectant management if: - LFT > 80 or platelets < 100 - uncontrolled BP >160/110 not responsive to meds - RUq pain - severe vis changes or SOB pulm alexx - seizure - NRFHTS - abruption - Renal dysfunction creatinine > 1.1 or double baseline - pelase send labs 2x weekly - BPP 2 x weekly while in hospital - please call with acute changes or if further advice needed - we will follow up with patient in house
--- NOTE | 2018-09-18 17:38 | Ultrasound Report ---
ULTRASOUND OBSTETRIC Indication: pre-eclampsia COMPARISON: 09/17/2018 Findings: There is a single intrauterine . BPD = 6.3 cm = 25 weeks, 4 day(s). Head circumference = 23.6 cm = 25 weeks, 5 day(s). Abdominal circumference = 21.3 cm = 25 weeks, 5 day(s). Femur length = 5.1 cm = 27 weeks, 3 day(s). Overall estimated sonographic age = 26 weeks, 1 day(s). heart rate is 127 beats per minute. Estimated weight is grams position is cephalic. Placenta is posterior and grade 3 . Amniotic fluid volume is 5.8 cm which is decreased. Impression: 1. Single living intrauterine with estimated sonographic age of 26 weeks, 1 day(s). This i s 3 weeks less than the patient's last menstrual period dates. 2. Amniotic fluid volume is 5.8 cm which is decreased. BIOPHYSICAL PROFILE Biophysical profile score for breathing movement, movement, posture and tone and qu alitative amniotic fluid volume is 2. The overall score is 8 out of 8. OB VELOCIMETRY OF THE UMBILICAL ARTERY heart rate is 123 bpm. The average S/D the ratio is 4.6 which is abnormal. The waveform appears normal. The average resistive index is 0.8. Impression: Both the S/D ratio and resistive index are abnormally elevated. Signer Name: Chilo Elizabeth MD Signed: 09/18/2018 5:34 PM Workstation Name: [id number]
--- NOTE | 2018-09-18 19:59 | Progress Note ---
Assessment and Plan - Patient Problems (1) 29 weeks gestation of Current Visit: Yes Status: Acute (2) Preeclampsia Onset Date: 09/17/18 Current Visit: Yes Status: Acute Qualifiers: Trimester: third trimester Qualified Code(s): O14.93 - Unspecified pre- eclampsia, third trimester Plan to address problem: Patient is currently asymptomatic. Celestone completed. BP is stable. Continue BP monitoring. Labetolol for BP control. APA consult done. Sonogram done. (3) IUGR (intrauterine growth restriction) Current Visit: Yes Status: Acute Plan to address problem: S/P Magnesium sulfate Celestone for FLM completed. Will continue monitoring. Labetolol for BP control. Will repeat RADHA and cord doppler in AM. Will deliver if the tracing becomes nonreassuring, reversed EDF, uncontrolled BP, severe pre-eclampsia symptoms. APA consult done. NICU consult. (4) Oligohydramnios Current Visit: Yes Status: Acute Plan to address problem: Will repeat RADHA in AM. Subjective - Subjective Date of service: 09/18/18 Principal diagnosis: SIUP at 29 weks and 2 days with pre-eclampsia. Interval history: Patient is a 28 year old , EDC who is at 29 weeks and 2 days gestation who was admitted for pre-eclampsia. She presented to the ER yesterday with complaints of headache, visual disturbances, edema, and chest pain. Her initial BPs were in the 160's/100. She was given Magnesium sulfate for seizure prophylaxis and neuroprotection, celestone for FLM, and hydralazine. Toxemia labs were normal. Urine protein >500 mg. 24-hr urine is pending. BP has been in the 130-140's/90's since admission. tracing is CAT1. BPP was 8/8 (09/17). Her magnesium was discontinued last night This AM, she reports occasional headaches. She reports good movement. Sonogram showed: VTX, BPP 8/8 but RADHA is 5.8, EFW 924 gms, S/D ratio 4.6, normal umbilical doppler flow. Objective - Vital Signs Vital Signs: Vital Signs - 12hr 09/18/18 09/18/18 09/18/18 07:58 08:02 08:03 Temperature Pulse Rate 70 66 68 Blood Pressure 137/79 O2 Sat by Pulse 96 96 Oximetry 09/18/18 09/18/18 09/18/18 08:08 08:13 08:18 Temperature Pulse Rate 68 68 70 Blood Pressure O2 Sat by Pulse 96 96 94 Oximetry 09/18/18 09/18/18 09/18/18 08:19 08:23 08:28 Temperature Pulse Rate 69 73 68 Blood Pressure O2 Sat by Pulse 94 96 95 Oximetry 09/18/18 09/18/18 09/18/18 08:33 08:38 08:41 Temperature Pulse Rate 71 69 70 Blood Pressure O2 Sat by Pulse 95 95 94 Oximetry 09/18/18 09/18/18 09/18/18 08:43 08:48 08:53 Temperature Pulse Rate 68 66 69 Blood Pressure O2 Sat by Pulse 95 96 96 Oximetry 09/18/18 09/18/18 09/18/18 08:58 09:02 09:03 Temperature Pulse Rate 66 70 68 Blood Pressure 139/96 O2 Sat by Pulse 97 97 Oximetry 09/18/18 09/18/18 09/18/18 09:08 09:13 09:18 Temperature Pulse Rate 68 70 67 Blood Pressure O2 Sat by Pulse 96 98 98 Oximetry 09/18/18 09/18/18 09/18/18 09:23 09:28 09:33 Temperature Pulse Rate 71 72 73 Blood Pressure O2 Sat by Pulse 98 98 98 Oximetry 09/18/18 09/18/18 09/18/18 09:38 09:43 09:48 Temperature Pulse Rate 73 74 71 Blood Pressure O2 Sat by Pulse 99 99 98 Oximetry 09/18/18 09/18/18 09/18/18 09:53 09:58 10:02 Temperature Pulse Rate 72 74 68 Blood Pressure 139/93 O2 Sat by Pulse 99 99 Oximetry 09/18/18 09/18/18 09/18/18 10:03 10:08 10:13 Temperature Pulse Rate 74 71 73 Blood Pressure O2 Sat by Pulse 99 98 98 Oximetry 09/18/18 09/18/18 09/18/18 10:18 10:23 10:28 Temperature Pulse Rate 76 70 70 Blood Pressure O2 Sat by Pulse 97 98 99 Oximetry 09/18/18 09/18/18 09/18/18 10:33 10:38 10:43 Temperature Pulse Rate 82 72 76 Blood Pressure O2 Sat by Pulse 98 98 98 Oximetry 09/18/18 09/18/18 09/18/18 10:48 10:53 10:58 Temperature Pulse Rate 76 77 89 Blood Pressure O2 Sat by Pulse 97 97 97 Oximetry 09/18/18 09/18/18 09/18/18 11:03 11:08 11:13 Temperature Pulse Rate 78 76 74 Blood Pressure 147/92 O2 Sat by Pulse 97 97 97 Oximetry 09/18/18 09/18/18 09/18/18 11:18 11:23 11:28 Temperature Pulse Rate 74 84 81 Blood Pressure O2 Sat by Pulse 97 99 97 Oximetry 09/18/18 09/18/18 09/18/18 11:33 11:38 11:43 Temperature Pulse Rate 75 73 84 Blood Pressure O2 Sat by Pulse 99 98 98 Oximetry 09/18/18 09/18/18 09/18/18 12:40 13:21 18:56 Temperature 97.6 F Pulse Rate 75 70 Blood Pressure 123/82 131/80 O2 Sat by Pulse Oximetry - Exam Cardiovascular: Normal S1, Normal S2 Lungs: Clear to auscultation Vulva: both: normal FHR: category 1 Uterine Contraction Monitor Mode: External Uterine Contraction Pattern: Absent Extremities: edema Deep Tendon Reflex Grade: Normal +2 - Labs Labs: Abnormal Labs 09/17/18 09/17/18 09/17/18 01:47 01:47 23:03 RBC 3.52 L Lymph % (Auto) 36.9 H [place] % (Auto) 9.7 H Sodium 136 L Carbon Dioxide 19 L Calcium 8.3 L Magnesium 7.50 H Total Protein 5.7 L Albumin 3.3 L 09/18/18 09/18/18 05:27 13:42 RBC Lymph % (Auto) [place] % (Auto) Sodium Carbon Dioxide Calcium Magnesium 5.40 H 4.00 H Total Protein Albumin Laboratory Results - last 24 hr 09/17/18 09/18/18 09/18/18 23:03 05:27 13:42 Magnesium 7.50 H 5.40 H 4.00 H - Results US- obstetric: report reviewed
[2018-09-18] MEDS: NORMODYNE PO SCH (22:36)
[2018-09-19] MEDS: LACTATED RINGERS 1,000 ML IV SCH ×2 (00:27→18:27)
[2018-09-19 09:22] LABS: Hematocrit 32.4 % (30.3-42.9); Hemoglobin 10.6 gm/dl (10.1-14.3); Mean Corpuscular HGB Conc 33 % (30-34); Mean Corpuscular Volume 87 fl (79-97); Platelet Count 154 K/mm3 (140-440); Red Blood Count 3.74 M/mm3 (3.65-5.03); Red Cell Distribution Width 15.5 % (13.2-15.2)
--- NOTE | 2018-09-19 09:31 | Progress Note ---
Assessment and Plan - Patient Problems (1) 29 weeks gestation of Current Visit: Yes Status: Acute Plan to address problem: Patient is currently asymptomatic. Celestone completed. BP is stable. Continue BP monitoring. Labetolol for BP control. [facility] consult done. Sonogram done. (2) IUGR (intrauterine growth restriction) Current Visit: Yes Status: Acute Plan to address problem: S/P Magnesium sulfate Celestone for FLM completed. Will continue monitoring. Labetolol for BP control. Will repeat RADHA and cord doppler today. Will deliver if the tracing becomes nonreassuring, reversed EDF, uncontrolled BP, severe pre-eclampsia symptoms. [facility] consult noted. NICU awrae. (3) Preeclampsia Onset Date: 09/17/18 Current Visit: Yes Status: Acute Qualifiers: Trimester: third trimester Qualified Code(s): O14.93 - Unspecified pre- eclampsia, third trimester Subjective - Subjective Date of service: 09/19/18 Principal diagnosis: SIUP at 29 weks and 2 days with pre-eclampsia. Interval history: Pt is a 28yo BF EDC 12/01/18; EGA 29 4/7 weeks. Presented to L&D compl aining of chest pains with SOB, was sent to the ER where she was evaluated for costochondritis and sent back to L&D for Preeclampsia. She was begun on IV Magnesium sulfate and this was discontinued after 24 hrs. She had no complaints today and was wondering if she could go home. She received care at [facility]. Patient reports: movement normal, no new complaints, no loss of fluid, no vaginal bleeding, no contractions Objective - Vital Signs Vital Signs: Vital Signs - 12hr 09/18/18 09/18/18 09/18/18 21:56 21:59 22:36 Temperature Pulse Rate 67 77 77 Blood Pressure 155/101 145/98 145/98 09/18/18 09/18/18 09/19/18 22:56 23:56 00:56 Temperature Pulse Rate 68 81 74 Blood Pressure 152/94 116/67 103/58 09/19/18 09/19/18 09/19/18 01:57 02:56 03:56 Temperature Pulse Rate 69 71 71 Blood Pressure 124/74 138/80 126/77 07/09/19 07/09/19 07/09/19 04:56 05:56 06:57 Temperature Pulse Rate 62 67 71 Blood Pressure 110/71 121/72 144/82 09/19/18 09/19/18 09/19/18 07:01 08:41 08:56 Temperature 98.4 F Pulse Rate 51 L 61 Blood Pressure 157/97 146/97 - Exam Breasts: deferred Lungs: Clear to auscultation Abdomen: Present: soft, distention Uterus: Present: fundal height above umbilicus - Labs Labs: Abnormal Labs 09/17/18 09/17/18 09/17/18 01:47 01:47 14:45 WBC RBC 3.52 L RDW Lymph % (Auto) 36.9 H Payette % (Auto) 9.7 H Sodium 136 L Carbon Dioxide 19 L Calcium 8.3 L Magnesium Total Protein 5.7 L Albumin 3.3 L Ur Total Protein 24 Hr 525.00 H Urine Total Protein 35 H 09/17/18 09/18/18 09/18/18 23:03 05:27 13:42 WBC RBC RDW Lymph % (Auto) Payette % (Auto) Sodium Carbon Dioxide Calcium Magnesium 7.50 H 5.40 H 4.00 H Total Protein Albumin Ur Total Protein 24 Hr Urine Total Protein 09/19/18 07:53 WBC 11.2 H RBC RDW 15.5 H Lymph % (Auto) Payette % (Auto) Sodium Carbon Dioxide Calcium Magnesium Total Protein Albumin Ur Total Protein 24 Hr Urine Total Protein Laboratory Results - last 24 hr 09/17/18 09/18/18 09/19/18 14:45 13:42 07:53 WBC 11.2 H RBC 3.74 Hgb 10.6 Hct 32.4 MCV 87 MCH 28 MCHC 33 RDW 15.5 H Plt Count 154 Magnesium 4.00 H Urine Total Volume 1500 Ur Total Protein 24 Hr 525.00 H Urine Total Protein 35 H
[2018-09-19 10:06] LABS: Alanine Aminotransferase 11 units/L (7-56)
[2018-09-19] MEDS: NORMODYNE PO SCH (10:15)
[2018-09-19] MEDS: PRENATAL VITAMIN PO SCH (10:16)
--- NOTE | 2018-09-19 12:37 | Ultrasound Report ---
ULTRASOUND OB VELOCIMETRY UMBILICAL ARTERY ULTRASOUND OB BIOPHYSICAL PROFILE TECHNIQUE: Transabdominal grayscale ultrasound with color and spectral Doppler interrogation. HISTORY: Preeclampsia. UMBILICAL ARTERIES: heart rate measures 117 bpm. 3 segments of the umbilical cord were evaluated with spectral Dopp ler. All 3 segments demonstrate loss of end-diastolic blood flow. The average pulsatility index measures 1.96. BPP: heart rate measured 1 37 bpm. breathing movements were scored 0. movement, po sterior and tone, and qualitative amniotic fluid volume were scored 2. Total score for BPP 6/8. Signer Name: Chu Madsen Jr, MD Signed: 09/19/2018 12:33 PM Workstation Name: [id number]
--- NOTE | 2018-09-19 12:42 | Consultation ---
History of Present Illness Consult date: 09/19/18 Reason for consult: other (elevated BP) History of present illness: Ms. Dickey is , 29.4 weeks that was admitted to [facility] due to elev ated BP and complaints of PIH symptoms (headaches, SOB, chest pain, and visual disturbances). She admits to a Preeclampsia hx requiring delivery at 36 weeks with previous . She denies PIH symptoms currently. BMZ and Magnesium sulfate completed. 24 hour urine protein results 525. Pt reports ultrasound performed today- results pending. She is without complaints today. Past History Past Medical History: no pertinent history, other (preeclampsia) Past Surgical History: section Family/Genetic History: none - Obstetrical History : 5 Medications and Allergies Allergies Allergy/AdvReac Type Severity Reaction Status Date / Time No Known Allergies Allergy Unverified 04/15/18 23:12 Home Medications Medication Instructions Recorded Confirmed Last Taken Type Amoxicillin [Amoxicillin TAB] 875 mg PO BID 10 Days #20 tablet 04/16/18 Unknown Rx Active Meds: Active Medications Acetaminophen (Tylenol) 650 mg PO Q4H PRN PRN Reason: Pain MILD(1-3)/Fever >100.5/RIVERA Last Admin: 09/17/18 18:39 Dose: 650 mg Documented by: Docusate Sodium (Colace) 100 mg PO Q12H PRN PRN Reason: Constipation Hydralazine HCl (Apresoline) 10 mg IV Q30MIN PRN PRN Reason: Blood Pressure Lactated Ringer's (Lactated Ringers) 1,000 mls @ 75 mls/hr IV DIRECT FOR[facility]LY [facility], [facility]1983 Last Admin: 09/19/18 00:27 Dose: 125 mls/hr Documented by: Labetalol HCl (Normodyne) 200 mg PO BID FOR[facility]LY [facility], [facility]1983 Last Admin: 09/19/18 10:15 Dose: 200 mg Documented by: Magnesium Hydroxide (Milk Of Magnesia) 30 ml PO QHS PRN PRN Reason: Laxative Effect Morphine Sulfate (Morphine) 2 mg IV Q4H PRN PRN Reason: Pain, Moderate (4-6) Multivitamins/Iron/Calcium ( Vitamin) 1 each PO QDAY FOR[facility]LY [facility], [facility]1983 Last Admin: 09/19/18 10:16 Dose: 1 each Documented by: Oxycodone/Acetaminophen (Percocet 5/325) 2 tab PO Q6H PRN PRN Reason: Pain, Moderate (4-6) Review of Systems Constitutional: other (denies headaches, fever, fatigue, chills) Eyes: other (denies visual disturbances) Ears, nose, mouth and throat: deferred Cardiovascular: other (denies chest pain, palpitations, sob, edema) Respiratory: other (denies sob, wheezing, and coughing) Gastrointestinal: other (denies diarrhea, nausea, constipation, RUQ pain) Genitourinary: other (denies contractions, Leaking of fluid, and bleeding) Rectal Exam: deferred Neurological: other (denies headaches) - Vital Signs Vital signs: Vital Signs Temp Pulse Resp BP Pulse Ox 97.7 F 51 L 18 151/110 100 09/17/18 00:35 09/17/18 00:35 09/17/18 00:35 09/17/18 00:35 09/17/18 00:35 Temp Pulse Resp BP Pulse Ox 98.6 F 65 18 156/95 98 09/19/18 08:35 09/19/18 11:56 09/19/18 08:35 09/19/18 11:56 09/18/18 11:43 - Physical Exam Breasts: Positive: deferred Cardiovascular: Regular rate, Normal S1, Normal S2 Lungs: Positive: Clear to auscultation, Normal air movement Abdomen: Positive: soft, other (nontender, gravid) Deep Tendon Reflex Grade: Hyperactive,very brisk +4 Results Result Diagrams: 09/19/18 07:53 09/19/18 07:53 Abnormal lab results 09/17/18 09/18/18 09/19/18 Range/Units 14:45 13:42 07:53 WBC 11.2 H (4.5-11.0) K/mm3 RDW 15.5 H (13.2-15.2) % Uric Acid (3.5-7.6) mg/dL Magnesium 4.00 H (1.7-2.3) mg/dL Lactate Dehydrogenase (91-180) units/L Ur Total Protein 24 Hr 525.00 H (2-200) mg/dL Urine Total Protein 35 H (5-11.8) mg/dL 09/19/18 Range/Units 07:53 WBC (4.5-11.0) K/mm3 RDW (13.2-15.2) % Uric Acid 8.0 H (3.5-7.6) mg/dL Magnesium (1.7-2.3) mg/dL Lactate Dehydrogenase 210 H (91-180) units/L Ur Total Protein 24 Hr (2-200) mg/dL Urine Total Protein (5-11.8) mg/dL All other labs normal. Assessment and Plan A- IUP 29.4 weeks- REE 12/01/18 Preeclampsia BPs- 171/100s- Initiated Labetalol 200mg BID today. Current BP 140s-150s/80s-90s Afebrile Denies PIH symptoms S/P Magnesium Sulfate infusion S/P BMZ 24 hour urine protein -525 S/P BPP today- 08/19, -2 breathing Reassuring dopplers p- Continue with current plan of care. Per Dr. Meraz: - Labetalol 200mg BID, Hydralazine prn as indicated - Discontinue Magnesium Sulfate after 24 hours - Continue inpatient management due to the patient with her previous severe range BP and blurry vision, chest (resolved) and history of PreE - Perform labs biweekly - BPP Tuesdays and Fridays - Monitor for PIH symptoms -Aim to deliver the patient at 34 weeks but would not recommend expectant management if: - LFT > 80 or platelets < 100 - uncontrolled BP >160/110 not responsive to meds - RUq pain - severe vis changes or SOB pulm alexx - seizure - NRFHTS - abruption - Renal dysfunction creatinine > 1.1 or double baseline - please call with acute changes or if further advice needed For additional questions or concerns, please notify iron piler . Thank you. Vic Nunez NP
--- NOTE | 2018-09-19 17:38 | Event Note ---
Date: 09/19/18 Discussed today's ultrasound finding of no diastolic flow in three sections of umbilical cord with Rose Marie Joseph MD: He recommended keeping fetus under continuous monitoring, repeating the umbilical vascular flow on . If there were decelerations on monitoring or reversal of flow, Dr. Joseph stated these events would warrant consideration for delivery.
[2018-09-19] MEDS ORDERED: PEPCID IV ONE ×2 (21:24→21:30)
[2018-09-19] MEDS ORDERED: REGLAN ONE (21:24)
[2018-09-19] MEDS ORDERED: ANCEF/STERILE WATER 2 GM/20 ML 2 GM/20 ML SYRINGE IV ONE (21:24)
[2018-09-19] MEDS ORDERED: BICITRA ONE (21:24)
[2018-09-19] MEDS ORDERED: REGLAN IV ONE (21:30)
[2018-09-19] MEDS ORDERED: ANCEF/STERILE WATER 2 GM/20 ML 2 GM/20 ML SYRINGE IV NR (21:30)
[2018-09-19] MEDS ORDERED: BICITRA PO ONE (21:30)
[2018-09-19] MEDS ORDERED: PITOCin/NS 20 UNIT/1000ML DRIP 20 UNITS/1,000 ML BAG IV SCH (21:30)
[2018-09-19 21:32] LABS: Hematocrit 30.8 % (30.3-42.9); Hemoglobin 10.2 gm/dl (10.1-14.3); Mean Corpuscular HGB Conc 33 % (30-34); Mean Corpuscular Volume 87 fl (79-97); Platelet Count 151 K/mm3 (140-440); Red Blood Count 3.55 M/mm3 (3.65-5.03); Red Cell Distribution Width 15.4 % (13.2-15.2)
[2018-09-19] MEDS ORDERED: MAGNESIUM SULFATE 40GM/1000ML 40 GM/1,000 ML BAG IV ONE (21:50)
[2018-09-19] MEDS ORDERED: MAGNESIUM SULFATE 4GM/100ML 4 GM/100 ML BAG IV ONE (21:50)
[2018-09-19] MEDS ORDERED: PITOCin/NS 20 UNIT/1000ML DRIP 20,000 MILLIUNITS/1,000 ML BAG IV ONE (21:52)
[2018-09-19] MEDS ORDERED: DILAUDID IV PRN (21:58)
[2018-09-19] MEDS ORDERED: PHENERGAN PR PRN (21:58)
[2018-09-19] MEDS ORDERED: NARCAN 0.4 MG/1 ML IV PRN (21:58)
[2018-09-19] MEDS ORDERED: PHENERGAN PO PRN (21:58)
[2018-09-19] MEDS ORDERED: ZOFRAN IV PRN (21:58)
[2018-09-19] MEDS ORDERED: SODIUM CHLORIDE FLUSH SYRINGE 10 ML IV PRN (22:00)
--- NOTE | 2018-09-19 22:04 | Anesthesia Consultation ---
Anesthesia Consult and Med Hx Date of service: 09/19/18 - Airway Anesthetic Teeth Evaluation: Good ROM Head & Neck: Adequate Mental/Hyoid Distance: Adequate Mallampati Class: Class II Intubation Access Assessment: Probably Good - Pulmonary Exam CTA: Yes - Cardiac Exam Cardiac Exam: RRR - Pre-Operative Health Status ASA Pre-Surgery Classification: ASA2 Proposed Anesthetic Plan: Epidural - Pulmonary Hx Smoking: No Hx Asthma: No Hx Respiratory Symptoms: No SOB: No COPD: No Home Oxygen Therapy: No Hx Pneumonia: No Hx Sleep Apnea: No - Cardiovascular System Hx Hypertension: Yes (PIH) Hx Coronary Artery Disease: No Hx Heart Attack/AMI: No Hx Angina: No Hx Percutaneous Transluminal Coronary Angioplasty (PTCA): No Hx Cardia Arrhythmia: No Hx Pacemaker: No Hx Internal Defibrillator: No Hx Valvular Heart Disease: No Hx Heart Murmur: No Hx Peripheral Vascular Disease: No - Central Nervous System Hx Neuromuscular Disorder: No Hx Seizures: No CVA: No Hx Back Pain: No Hx Psychiatric Problems: Yes (last year dx panic attacks) - Gastrointestinal Hx Ulcer: No Hx Gastroesophageal Reflux Disease: Yes - Endocrine Hx Renal Disease: No Hx End Stage Renal Disease: No Hx Cirrhosis: No Hx Liver Disease: No Hx Insulin Dependent Diabetes: No Hx Non-Insulin Dependent Diabetes: No Hx Thyroid Disease: No Hx Hypothyroidism: No Hx Hyperthyroidism: No - Hematic Hx Anemia: No Hx Sickle Cell Disease: No - Other Systems Hx Alcohol Use: No Hx Substance Use: No Hx Cancer: No Hx Obesity: No
--- NOTE | 2018-09-19 22:07 | Event Note ---
Date: 09/19/18 Was called by precision lens grinder apprentice re heart tracing with minimal variability and three significant decelerations between [id number] HRS. Earlier BPP was 6/8 and umbilical blood flow found absent diastolic flow. Mom stable but BPs still labile. Clinical condition was discussed with Rose Marie Joseph MD and he advised to proceed with delivery and to restart MgSO4. NICU aware. Plan: for delivery.
--- NOTE | 2018-09-19 22:07 | Anesthesia Day of Surgery ---
Anesthesia Day of Surgery - Day of Surgery Patient Examined: Yes Patient H&P Reviewed: Yes Patient is NPO: Yes Beta Blockers: No Cardiac Clearance: No Pulmonary Clearance: No Jatin's Test: N/A
[2018-09-19] MEDS ORDERED: ANCEF/STERILE WATER 2 GM/20 ML IV ONE (22:25)
[2018-09-19] MEDS ORDERED: DIPRIVAN 10 MG/ML IV ONE (22:42)
[2018-09-19] MEDS ORDERED: QUELICIN ONE (22:51)
[2018-09-19] MEDS ORDERED: ROBINUL ONE (23:00)
[2018-09-19] MEDS ORDERED: ZEMURON IV ONE (23:00)
[2018-09-19] MEDS ORDERED: BLOXIVERZ ONE (23:00)
[2018-09-19] MEDS ORDERED: TORADOL ONE (23:01)
[2018-09-19] MEDS ORDERED: ZOFRAN ONE (23:01)
[2018-09-19] MEDS ORDERED: SUBLIMAZE ONE (23:25)
[2018-09-19] MEDS ORDERED: VERSED ONE (23:26)
[2018-09-20] MEDS ORDERED: TUCKS PAD TP PRN
[2018-09-20] MEDS ORDERED: PITOCin/NS 20 UNIT/1000ML DRIP 20 UNITS/1,000 ML BAG IV SCH
[2018-09-20] MEDS ORDERED: LANSINOH TP PRN
--- NOTE | 2018-09-20 00:30 | Operative Report ---
Operative Report Operative Report: Date of surgery: 09/19/2018 Diagnoses: 29 weeks and 4 days gestation, IUGR, preeclampsia and nonreassuring heart monitoring. Postoperative diagnosis: Same plus peritoneal adhesions. Procedures: Low segment transverse section and lysis of adhesions. Surgeon: Leticia CUNNINGHAM French Professor: Rose Marie Kim CRNA Anesthesia: Spinal Blockade and general anesthesia. Estimated blood loss: 500 cc Complications: None Findings: There was a live baby boy in cephalic presentation who spun out of the pelvis as the hysterotomy was being established through a transverse lie. Both ovaries and fallopian tubes were grossly normal. The uterus was unremarkable gravid structure. There was a dense band of omental adhesions involving the greater omentum to the anterior parietal peritoneum. The loops of bowel seen through the Pfannenstiel incision were all grossly normal. Procedure in details. The patient was taken to the operating room and given a spinal blockade. On indwelling fullness catheter was inserted. The patient was placed in the straight supine position with a slight left lateral tilt and prepped in the abdomen. Drapes were placed. A timeout was done Coordinate with the floor worker well service the surgical field was tested for effective analgesia, and find in this eye has insufficient with a spina the French Professor put the patient to sleep. A routine Pfannenstiel incision was placed over the previously existing scar. This incision was carried across the subcutaneous layer to the fascia which was also divided transversely. The recti abdominis muscle flaps were dissected off of the fascia using a combination of blunt and sharp dissections. The muscles were in the midline to gain access to the anterior parietal peritoneum was divided with the Metzenbaum after excluding any underlying viscera. The laparotomy was widened by model stretch and period the bladder blade was applied and the uterosacral for cycle peritoneal flap was cut transversely allowing the bladder was displaced caudally. The uterine layer was cut transversely down to the decidual layer. Due to the gestational age and the thickness of the lower segment at times again entrance into the uterine cavity was difficult displacing the head of the baby out of the pelvis. The amniotic sac was ruptured in the process with clear fluids. The popliteal fossa off the left lower limb was first identified and brought through the incision allowing the second lower limb to be brought through the incision. Using a blue towel wrapped around the waist of the baby traction delivered the baby up to the shoulder blades. The Lovset maneuver was used to deliver the arms. Holding the baby and ankles and upside down continued fundal pressure delivered the head. The umbilical cord was double clamped and divided and the baby was received by the pediatric team. The placenta was manually removed from the uterine cavity which was explored and was empty of any placental remnants. The uterine incision was repaired in 2 layers. Hemostasis was excellent. Blood and clots were cleared from the peritoneal cavity. The described omental adhesion was divided and the pedicles tied off with 2-0 Vicryl. The anterior parietal peritoneal was with 0 Vicryl. The fascia was repaired with 0 Vicryl. The subcutaneous layer was cauterized in several spots to achieve satisfactory hemostasis before the skin was closed subcuticularly with 4-0 Vicryl on a Kevin needle. All sponges and instruments were accounted for. The estimated blood loss was about 5 mL. There were no complications. Patient was transferred to the recovery room in very good condition.
--- NOTE | 2018-09-20 00:54 | Post Anesthesia Evaluation ---
- Post Anesthesia Evaluation Patient Participated: Yes Airway Patent: Yes Stable Respiratory Function: Yes Nausea/Vomiting: No Temp > 96.8F: Yes Pain Manageable: Yes Adequeate Hydration: Yes Anesthesia Complications: No Block Receding Appropriately: Not Applicable Patient on Ventilator: No
[2018-09-20] MEDS: DILAUDID IV PRN ×2 (01:30→09:33)
[2018-09-20] MEDS ORDERED: LACTATED RINGERS 1,000 ML IV SCH (05:00)
[2018-09-20] MEDS: TORADOL IV PRN ×2 (05:13→12:55)
[2018-09-20] MEDS ORDERED: ANCEF/NS 1 GM/50 ML 1 GM/50 ML BAG IV SCH (05:30)
[2018-09-20] MEDS: PRENATAL VITAMIN PO SCH (10:28)
[2018-09-20] MEDS: NORMODYNE PO SCH ×2 (10:29→22:24)
[2018-09-20] MEDS: FEOSOL PO SCH (10:29)
--- NOTE | 2018-09-20 10:38 | Progress Note ---
Assessment and Plan - Patient Problems (1) 29 weeks gestation of Current Visit: Yes Status: Acute (2) Preeclampsia Onset Date: 09/17/18 Current Visit: Yes Status: Acute Qualifiers: Trimester: third trimester Qualified Code(s): O14.93 - Unspecified pre- eclampsia, third trimester Plan to address problem: Patient is currently asymptomatic. Continue Magnesium sulfate. Monitor Mg levels, DTRs and urine output. BP is stable. Continue BP monitoring. Labetolol for BP control. (3) IUGR (intrauterine growth restriction) Current Visit: Yes Status: Acute (4) Oligohydramnios Current Visit: Yes Status: Acute Subjective - Subjective Date of service: 09/20/18 Principal diagnosis: SIUP at 29 weks and 4 days with pre-eclampsia. Interval history: Patient is a 28 year old , EDC who is S/P repeat C/section at 29 weeks and 4 days gestation for non-reassuring tracing and severe pre-eclampsia. She presented to the ER 3 days ago with complaints of headache, visual disturbances, edema, and chest pain. Her initial BPs were in the 160's/100. She was given Magnesium sulfate for seizure prophylaxis and neuroprotection, celestone x 2 doses for FLM, and hydralazine. Toxemia labs were normal. Urine protein >500 mg. 24-hr urine protein 525 mg. BP had been in the 130-140's/90's since admission. On 09/17, sonogram showed EFW was 924 gms, RADHA 5.8, normal doppler flow, S/D ratio 4.6, BPP was 8/8. Sonogram on 09/19 showed fetus to be VTX, BPP 6/8, absent EDF flow. Later last night, the tracing showed multiple late decelerations. [facility] was contacted by the provider regional agronomist. Patient was taken to the OR for repeat C/section. The baby was 1 lb 13 oz. Magnesium was restarted. Level this AM was 6.5. BP is stable in the 130- 140's/80's. Urine output is adequate. She denies any headache, chest pain or SOB. Objective - Vital Signs Latest vital signs: Vital Signs Temp Pulse Resp BP BP Pulse Ox 09/20/18 10:23 66 98 09/20/18 10:18 63 97 09/20/18 10:13 64 98 09/20/18 10:08 66 97 09/20/18 10:03 66 98 09/20/18 09:58 67 97 09/20/18 09:53 69 97 09/20/18 09:48 75 98 09/20/18 09:43 69 96 09/20/18 09:38 77 100 09/20/18 09:37 73 138/89 09/20/18 09:33 75 99 09/20/18 09:28 63 99 09/20/18 09:23 64 99 09/20/18 09:18 62 99 09/20/18 09:13 65 99 09/20/18 09:08 60 99 09/20/18 09:02 65 98 09/20/18 08:58 60 99 09/20/18 08:53 64 99 09/20/18 08:48 64 100 09/20/18 08:43 77 99 09/20/18 08:38 66 100 09/20/18 08:37 69 123/72 09/20/18 08:33 71 100 09/20/18 08:32 43 L 89 09/20/18 08:22 70 100 09/20/18 08:17 68 100 09/20/18 08:12 63 100 09/20/18 08:07 69 100 09/20/18 08:02 68 100 09/20/18 07:57 65 100 09/20/18 07:52 55 L 100 09/20/18 07:47 69 100 09/20/18 07:42 61 99 09/20/18 07:37 69 135/90 99 09/20/18 07:32 72 100 09/20/18 07:27 67 99 09/20/18 07:22 62 98 09/20/18 07:17 64 99 09/20/18 07:11 64 99 09/20/18 07:07 63 98 09/20/18 07:02 64 99 09/20/18 06:57 64 98 09/20/18 06:51 67 98 09/20/18 06:47 67 99 09/20/18 06:42 65 99 09/20/18 06:37 62 137/92 99 09/20/18 06:32 61 98 09/20/18 06:27 64 97 09/20/18 06:22 63 96 09/20/18 06:16 63 96 09/20/18 06:12 63 96 09/20/18 06:06 64 97 09/20/18 06:01 61 96 09/20/18 05:56 60 98 09/20/18 05:51 64 98 09/20/18 05:46 66 99 09/20/18 05:41 63 98 09/20/18 05:37 75 135/91 09/20/18 05:36 62 97 09/20/18 05:31 61 98 09/20/18 05:26 71 100 09/20/18 05:21 75 99 09/20/18 05:16 64 99 09/20/18 05:11 64 98 09/20/18 05:06 62 100 09/20/18 05:01 63 99 09/20/18 04:56 69 100 09/20/18 04:51 63 100 09/20/18 04:46 71 100 09/20/18 04:41 63 100 09/20/18 04:37 61 131/81 09/20/18 04:36 62 98 09/20/18 04:31 60 98 09/20/18 04:26 61 98 09/20/18 04:21 61 98 09/20/18 04:16 68 99 09/20/18 04:11 61 98 09/20/18 04:06 58 L 99 09/20/18 04:01 57 L 99 09/20/18 03:56 60 99 09/20/18 03:51 70 98 09/20/18 03:46 74 99 09/20/18 03:41 65 98 09/20/18 03:37 61 131/85 09/20/18 03:36 60 97 09/20/18 03:31 60 97 09/20/18 03:26 59 L 97 09/20/18 03:21 58 L 97 09/20/18 03:16 62 96 09/20/18 03:11 63 97 09/20/18 03:06 58 L 97 09/20/18 03:01 60 98 09/20/18 02:56 61 96 09/20/18 02:51 61 97 09/20/18 00:55 66 140/90 09/20/18 00:40 64 14 135/89 09/20/18 00:25 14 130/80 09/20/18 00:20 14 127/85 09/20/18 00:15 14 129/82 09/20/18 00:10 97.9 F 73 14 130/85 09/19/18 20:56 59 L 166/93 09/19/18 20:04 98.9 F 14 09/19/18 19:57 106 H 134/76 09/19/18 18:56 76 153/89 09/19/18 17:56 74 143/91 09/19/18 16:56 86 131/81 09/19/18 16:21 162/93 09/19/18 15:56 58 L 155/95 09/19/18 15:51 97.6 F 18 09/19/18 15:50 57 L 162/93 09/19/18 13:58 80 131/76 09/19/18 12:56 69 141/71 09/19/18 12:30 98.3 F 18 09/19/18 11:56 65 156/95 09/19/18 10:56 68 141/96 Intake and Output 09/19/18 09/20/18 09/20/18 23:59 07:59 15:59 Intake Total 1600 Balance 1600 Intake: IV 1600 Other: # Voids Void 1 Estimated Blood Loss 500 - Exam Cardiovascular: Present: Normal S1, Normal S2 Lungs: Present: Clear to auscultation Vulva: both: normal Deep Tendon Reflex Grade: Normal +2 - Labs Labs: Abnormal lab results 09/19/18 09/20/18 Range/Units 21:17 08:20 RBC 3.55 L (3.65-5.03) M/mm3 RDW 15.4 H (13.2-15.2) % Magnesium 6.50 H (1.7-2.3) mg/dL
[2018-09-20 12:47] LABS: Hematocrit 28.9 % (30.3-42.9); Hemoglobin 9.6 gm/dl (10.1-14.3)
[2018-09-20] MEDS: IBUPROFEN PO PRN (22:25)
[2018-09-21] MEDS: PERCOCET 5/325 PO PRN ×2 (03:04→23:30)
[2018-09-21] MEDS ORDERED: AMMONIA INHALANT IH ONE ×2 (04:40→04:43)
--- NOTE | 2018-09-21 08:42 | Progress Note ---
Assessment and Plan A: POD #2 Preeclampsia P: Follow Routine Orders Continue Labetolol as ordered Encourage increased ambulation Subjective - Subjective Date of service: 09/21/18 Principal diagnosis: SIUP at 29 weks and 4 days with pre-eclampsia. Patient reports: appetite normal, voiding normally, pain well controlled, flatus, ambulating normally, other (Denies HAs, visual changes, epigastic pain, N&V) : in NICU, bottle feeding Objective - Vital Signs Latest vital signs: Vital Signs Temp Pulse Resp BP BP Pulse Ox 09/21/18 08:15 98.7 F 74 18 118/76 98 09/21/18 04:30 98.7 F 69 18 108/63 09/21/18 03:04 20 09/21/18 01:37 74 121/72 09/21/18 01:15 72 99 09/21/18 01:10 72 98 09/21/18 01:05 71 98 09/21/18 01:00 69 99 09/21/18 00:55 71 98 09/21/18 00:50 73 98 09/21/18 00:45 76 99 09/21/18 00:40 85 100 09/21/18 00:37 85 124/65 09/21/18 00:35 73 97 09/21/18 00:30 73 98 09/21/18 00:25 85 98 09/21/18 00:20 77 97 09/21/18 00:15 71 98 09/21/18 00:10 69 98 09/21/18 00:05 70 98 09/21/18 00:00 71 97 09/20/18 23:55 67 98 09/20/18 23:50 70 100 09/20/18 23:45 69 99 09/20/18 23:40 73 98 09/20/18 23:38 70 144/92 09/20/18 23:35 70 98 09/20/18 23:30 71 98 09/20/18 23:25 73 98 09/20/18 23:20 75 99 09/20/18 23:15 79 100 09/20/18 23:10 73 99 09/20/18 23:05 69 99 09/20/18 23:00 73 99 09/20/18 22:55 69 100 09/20/18 22:50 79 100 09/20/18 22:45 74 99 09/20/18 22:40 78 100 09/20/18 22:38 73 139/94 09/20/18 22:35 75 100 09/20/18 22:30 72 100 09/20/18 22:25 86 98 09/20/18 22:22 80 126/68 09/20/18 22:20 71 100 09/20/18 22:15 79 99 09/20/18 22:10 76 100 09/20/18 22:05 73 99 09/20/18 22:00 71 99 09/20/18 21:55 76 100 09/20/18 21:50 77 100 09/20/18 21:45 79 99 09/20/18 21:40 81 100 09/20/18 21:37 80 126/102 09/20/18 21:35 75 100 09/20/18 21:30 89 99 09/20/18 21:25 69 99 09/20/18 21:20 67 98 09/20/18 21:15 69 98 09/20/18 21:10 67 98 09/20/18 21:05 71 98 09/20/18 21:00 72 98 09/20/18 20:55 76 98 09/20/18 20:50 73 98 09/20/18 20:45 73 98 09/20/18 20:40 78 97 09/20/18 20:37 71 134/74 09/20/18 20:35 78 99 09/20/18 20:30 75 99 09/20/18 20:25 73 100 09/20/18 20:20 72 99 09/20/18 20:15 74 100 09/20/18 20:10 79 100 09/20/18 20:05 78 99 09/20/18 20:03 98.3 F 70 16 123/80 99 09/20/18 20:00 69 99 09/20/18 19:55 78 100 09/20/18 19:50 73 99 09/20/18 19:45 71 99 09/20/18 19:40 69 99 09/20/18 19:37 77 123/82 09/20/18 19:35 72 99 09/20/18 19:30 74 98 09/20/18 19:25 77 99 09/20/18 19:20 68 100 09/20/18 19:15 77 100 09/20/18 19:10 74 99 09/20/18 19:05 68 99 09/20/18 19:00 67 99 09/20/18 18:55 67 99 09/20/18 18:50 68 98 09/20/18 18:45 72 98 09/20/18 18:40 71 99 09/20/18 18:37 67 126/90 09/20/18 18:35 70 99 09/20/18 18:30 69 98 09/20/18 18:25 71 98 09/20/18 18:20 74 97 09/20/18 18:15 71 98 09/20/18 18:10 67 99 09/20/18 18:05 80 97 09/20/18 17:38 82 99 09/20/18 17:37 83 115/71 09/20/18 17:33 71 98 09/20/18 17:28 78 98 09/20/18 17:23 66 98 09/20/18 17:18 71 99 09/20/18 17:13 67 98 09/20/18 17:08 68 98 09/20/18 17:03 69 97 09/20/18 16:58 73 98 09/20/18 16:53 71 98 09/20/18 16:48 71 98 09/20/18 16:43 65 98 09/20/18 16:38 68 98 09/20/18 16:37 68 132/72 09/20/18 16:33 66 98 09/20/18 16:30 99.8 F H 16 09/20/18 16:28 67 98 09/20/18 16:23 67 98 09/20/18 16:18 71 98 09/20/18 16:13 62 99 09/20/18 16:08 69 100 09/20/18 16:03 74 99 09/20/18 15:58 68 99 09/20/18 15:53 72 100 09/20/18 15:48 67 99 09/20/18 15:43 68 100 09/20/18 15:38 67 100 09/20/18 15:37 68 132/82 09/20/18 15:33 62 100 09/20/18 15:28 69 100 09/20/18 15:23 72 98 09/20/18 15:18 72 99 09/20/18 15:13 61 99 09/20/18 15:08 65 99 09/20/18 15:03 63 99 09/20/18 14:58 75 99 09/20/18 14:53 73 99 09/20/18 14:48 84 100 09/20/18 14:43 62 99 09/20/18 14:38 70 98 09/20/18 14:37 69 126/93 09/20/18 14:33 63 98 09/20/18 14:28 64 98 09/20/18 14:23 64 98 09/20/18 14:18 67 98 09/20/18 14:13 65 99 09/20/18 14:08 76 99 09/20/18 14:03 64 99 09/20/18 13:58 71 100 09/20/18 13:53 79 100 09/20/18 13:48 67 99 09/20/18 13:43 67 99 09/20/18 13:38 72 99 09/20/18 13:37 69 135/95 09/20/18 13:33 65 99 09/20/18 13:28 79 99 09/20/18 13:23 67 99 09/20/18 13:18 71 99 09/20/18 13:13 77 99 09/20/18 13:08 75 99 09/20/18 13:03 78 98 09/20/18 12:58 70 100 09/20/18 12:53 65 99 09/20/18 12:48 72 100 09/20/18 12:44 97.8 F 18 09/20/18 12:43 74 100 09/20/18 12:38 65 99 09/20/18 12:37 64 142/96 09/20/18 12:33 70 100 09/20/18 12:28 73 100 09/20/18 12:23 64 100 09/20/18 12:18 72 99 09/20/18 12:13 75 100 09/20/18 12:08 68 100 09/20/18 12:03 64 100 09/20/18 11:58 68 100 09/20/18 11:53 71 98 09/20/18 11:48 63 99 09/20/18 11:43 61 99 09/20/18 11:38 60 100 09/20/18 11:37 58 L 106/70 09/20/18 11:33 67 99 07/10/19 11:28 67 99 09/20/18 11:23 56 L 99 09/20/18 11:18 68 99 09/20/18 11:13 62 100 09/20/18 11:08 58 L 99 09/20/18 11:03 66 100 09/20/18 10:58 62 100 09/20/18 10:53 67 99 09/20/18 10:48 72 99 09/20/18 10:43 62 100 09/20/18 10:38 68 141/67 100 09/20/18 10:33 82 99 09/20/18 10:29 66 138/89 09/20/18 10:28 65 98 09/20/18 10:23 66 98 09/20/18 10:18 63 97 09/20/18 10:13 64 98 09/20/18 10:08 66 97 09/20/18 10:03 66 98 09/20/18 09:58 67 97 09/20/18 09:53 69 97 09/20/18 09:48 75 98 09/20/18 09:43 69 96 09/20/18 09:38 77 100 09/20/18 09:37 73 138/89 09/20/18 09:33 75 99 09/20/18 09:28 63 99 09/20/18 09:23 64 99 09/20/18 09:18 62 99 09/20/18 09:13 65 99 09/20/18 09:08 60 99 09/20/18 09:02 65 98 09/20/18 08:58 60 99 09/20/18 08:53 64 99 09/20/18 08:48 64 100 09/20/18 08:43 77 99 Intake and Output 09/20/18 09/21/18 09/21/18 22:59 06:59 14:59 Intake Total 300 Output Total 2000 Balance -1700 Intake: Intake, Free Water 300 Output: Urine 1999 Indwelling Catheter 1200 Void 800 Other: Total, Output Amount 800 # Voids Void 1 - Exam Breasts: Present: normal Cardiovascular: Present: Regular rate Lungs: Present: Clear to auscultation, Normal air movement Abdomen: Present: normal appearance, soft, normal bowel sounds Uterus: Present: normal, firm, fundal height below umbilicus Extremities: Present: edema (+1 pedal edema) Incision: Present: normal (well approxiamated), intact - Labs Labs: Abnormal lab results 09/20/18 09/20/18 09/20/18 Range/Units 08:20 12:22 12:22 Hgb 9.6 L (10.1-14.3) gm/dl Hct 28.9 L (30.3-42.9) % Magnesium 6.50 H 6.80 H (1.7-2.3) mg/dL 09/20/18 Range/Units 19:54 Hgb (10.1-14.3) gm/dl Hct (30.3-42.9) % Magnesium 6.20 H (1.7-2.3) mg/dL
[2018-09-21] MEDS: FEOSOL PO SCH (12:59)
[2018-09-21] MEDS: PRENATAL VITAMIN PO SCH (12:59)
[2018-09-21] MEDS: NORCO 5/325 PO PRN ×2 (13:00→19:45)
[2018-09-21] MEDS: NORMODYNE PO SCH ×2 (13:08→21:42)
[2018-09-21] MEDS: IBUPROFEN PO PRN (20:13)
[2018-09-22] MEDS: PERCOCET 5/325 PO PRN (05:23)
[2018-09-22] MEDS ORDERED: BOOSTRIX IM ONE (06:00)
[2018-09-22] MEDS: NORMODYNE PO SCH (10:03)
[2018-09-22] MEDS: FEOSOL PO SCH (10:04)
[2018-09-22] MEDS: PRENATAL VITAMIN PO SCH (10:04)
[2018-09-22] MEDS: NORCO 5/325 PO PRN (10:07)
[2018-09-22] MEDS: IBUPROFEN PO PRN (10:11)
--- NOTE | 2018-09-22 10:58 | Progress Note ---
Assessment and Plan - Patient Problems (1) S/P section Current Visit: Yes Status: Acute Plan to address problem: D/C home today Continue B/P medications F/U in office in 7 days for B/P and incision check (2) Preeclampsia Onset Date: 09/17/18 Current Visit: Yes Status: Acute Qualifiers: Trimester: third trimester Qualified Code(s): O14.93 - Unspecified pre- eclampsia, third trimester Subjective - Subjective Date of service: 09/22/18 Principal diagnosis: SIUP at 29 weks and 4 days with pre-eclampsia. Interval history: See admission H & P; OB operative report and PP progress notes Patient reports: appetite normal, voiding normally, pain well controlled, flatus, bowel movement, ambulating normally [place]: in NICU Objective - Vital Signs Latest vital signs: Vital Signs Temp Pulse Resp BP BP Pulse Ox 09/22/18 10:11 20 09/22/18 10:07 20 09/22/18 09:01 98.6 F 80 18 142/83 99 09/22/18 05:23 18 09/22/18 04:52 85 100 09/22/18 04:07 98.6 F 20 126/57 09/22/18 01:25 98.0 F 76 18 123/59 96 09/21/18 23:56 83 96 09/21/18 23:55 98.2 F 20 111/51 09/21/18 23:30 18 09/21/18 21:42 92 H 127/65 09/21/18 21:15 93 H 97 09/21/18 21:14 98.2 F 20 117/64 09/21/18 20:13 18 09/21/18 19:45 20 09/21/18 16:25 99.3 F 88 18 116/71 99 09/21/18 14:00 18 09/21/18 13:08 86 132/82 09/21/18 13:00 20 09/21/18 12:36 97.7 F 86 20 132/82 Intake and Output 09/21/18 09/22/18 09/22/18 23:59 07:59 15:59 Intake Total 480 400 840 Balance 480 400 840 Intake: Oral 480 400 360 Intake, Free Water 480 Other: Total, Intake Amount 480 200 360 # Voids Indwelling Catheter 2 Void 1 # Bowel Movements 0 - Exam Breasts: Present: deferred Cardiovascular: Present: Regular rate Lungs: Present: Normal air movement Abdomen: Present: soft, normal bowel sounds Uterus: Present: firm, fundal height below umbilicus (U-1) Extremities: Present: normal Deep Tendon Reflex Grade: Normal +2 Incision: Present: dry, intact (no signs of infection noted)
--- NOTE | 2018-09-22 11:04 | Discharge Summary ---
Providers - Providers Date of Admission: 09/17/18 05:22 Date of discharge: 09/22/18 (1200) Attending physician: ALLAN SAMPSON MD 09/17/18 14:45 Consult to Physician [CONS] Routine Comment: Consulting Provider: SHAWN GIRON Physician Instructions: Reason For Exam: IUP @ 29 week; Preeclampsia [facility] Reason for admission: [facility] - Delivery: Procedure: section Episiotomy: none Laceration: none Incision: dry, intact Other procedures: none complications: none Discharge diagnosis: delivery Datil baby: male Hospital course: See admission H & P; OB operative summary and PP progress notes Condition at discharge: Stable Disposition: [id number] TO HOME OR SELFCARE - Discharge Diagnoses (1) S/P section Status: Acute (2) Preeclampsia Status: Acute Qualifiers: Trimester: third trimester Qualified Code(s): O14.93 - Unspecified pre- eclampsia, third trimester Plan - Discharge Medications Prescriptions: Labetalol [Labetalol 200mg TAB] 200 mg PO BID 8 Days #16 tablet - Provider Discharge Summary Activity: routine, no sex for 6 weeks, no heavy lifting 4 weeks, no strenuous exercise Diet: other (2 grams low sodium diet) Instructions: routine Additional instructions: [] Smoking cessation referral if applicable(refer to patient education folder for contact #) [] Refer to [facility] Booklet Call your doctor immediately for: * Fever > 100.5 * Heavy vaginal bleeding ( >1 pad per hour) * Severe persistent headache * Shortness of breath * Reddened, hot, painful area to leg or breast * Drainage or odor from incision. * Keep incision clean and dry at all times and follow doctor's instructions regarding bathing/showering * Continue Labetalol 200 mg po BID until seen in office in 1 week - Follow up plan Follow up: ALLAN SAMPSON MD [Staff Physician] - 7 Days
[2018-09-22 12:39] VITALS: BP 137/82
== END 2018-09-22 12:35 | disposition home or self-care (01) | DRG 765 ==
LOC: ED 00:04 → EDSTATUS 05:13 → LD 05:22 → OB 09-21 02:33
PROVIDERS: ADMIT Obstetrics & Gynecology; ATTEND Obstetrics & Gynecology
PROC: 10D00Z1 Extraction of Products of Conception, Low, Open Approach (ICD-10-PCS; principal; 2018-09-19)
PROC: 0DNU0ZZ Release Omentum, Open Approach (ICD-10-PCS; 2018-09-19)
DX: O76 Abnormality in fetal heart rate and rhythm complicating labor and delivery (principal); O60.14X0 Preterm labor third trimester with preterm delivery third trimester, not applicable or unspecified; O11.4 Pre-existing hypertension with pre-eclampsia, complicating childbirth; O41.03X0 Oligohydramnios, third trimester, not applicable or unspecified; O99.62 Diseases of the digestive system complicating childbirth; K21.9 Gastro-esophageal reflux disease without esophagitis; M94.0 Chondrocostal junction syndrome [Tietze]; O75.89 Other specified complications of labor and delivery; O34.211 Maternal care for low transverse scar from previous cesarean delivery; O36.5930 Maternal care for other known or suspected poor fetal growth, third trimester, not applicable or unspecified; K66.0 Peritoneal adhesions (postprocedural) (postinfection); Z3A.29 29 weeks gestation of pregnancy; Z37.0 Single live birth; Z79.899 Other long term (current) drug therapy
CPT/HCPCS: 36415; 71045; 76816; 76819; 76820; 80053; 81001; 82550; 82553; 82565; 83615; 83735; 83880; 84156; 84450; 84460; 84484; 84550; 85014; 85018; 85025; 85027; 85610; 85730; 86592; 86706; 86850; 86900; 86901; 87806; 88307; 93005; 93010; 99212; 99285; G0378; G0463; J0330; J0360; J0690; J0702; J1170; J1885; J2250; J2270; J2405; J2590; J2704; J2710; J2765; J3010; J3475; J7120; Q0169

== ENCOUNTER 2020-11-03 12:06 | Outpatient (CLI) | payer MEDICAID ==
--- NOTE | 2020-10-22 20:19 | Event Note ---
Date: 10/22/20 (Pt wans to leave hospital NOW) Pt is a @ approximately 27-28 weeks gestation. Pt called EMS d/t fetus delivering. She has a history of a X2 (2010,2018), and a @ 25 weeks in 2020. Denies medical history and no surgical history expect for c- sections. States care at [facility] in [place]? Could not ask further questions because patient continued to state that she had to leave the hospital. . States that she had some cramping that started @ 11am. States that she did not call her primary OB because she did not think if was labor. Upon entering room to assess patient, she stated that she had to leave the hospital JAMARCUS, she could not stay in the hospital because she currently lives at a hotel and she left the door wide open when she left with EMS. Per EMS they had to tell the patient to come to the hospital. The fetus was wrapped in a towel upon EMS arrival. According to the patient "everything came out." Assessing fetus in the room, the amniotic fluid was brown, there was an odor present, and the fetus was cold. Unable to tell if there is a 3 vessel cord. Appears to be a female. There is skin sloughing noted. Placenta still attached to fetus. There also appeared to be a nuchal cord X1, d/t having to unwrap the cord from around the baby's neck during assessment. The skull appear to be deformed. Will send fetus and placenta to pathology. Patient does not want to see the fetus and stated" do I have to give it an name?" Pt continues to state that she needs something to eat and has to leave the hospital NOW. Explained to patient d/t history of will will have to get labs and watch her bleeding. Pt states "I am not bleeding, so can I have something to eat and leave now?" UDS to be sent. Vaginal and perineum inspected. No lacerations seen and minimal bleeding noted. Fundus firm below 2. Patient signed out AMA.
== END 2020-11-03 23:59 | disposition home or self-care (01) ==
LOC: TRG 12:06 → EDSTATUS 11-05 12:06
PROVIDERS: ATTEND Obstetrics & Gynecology
DX: O36.4XX0 Maternal care for intrauterine death, not applicable or unspecified (principal); Z3A.00 Weeks of gestation of pregnancy not specified
CPT/HCPCS: 88305; G0378